=== PATIENT | female | born 1950 | race Caucasian/White ===

== ENCOUNTER 2016-12-26 12:49 | Emergency (ER) | payer MEDICARE ==
[~2016-12-26] VITALS: Ht 172.7 cm; Wt 97.7 kg
[~2016-12-26 12:49] MED LIST: ALPRAZOLAM1 MG PO; ASPI-628 PO; B12 PO; BUPR-97 PO; CYT5 PO; DIAZ10TA PO; FUR80 PO; GLYB5TAB3 PO; MAGN400T23 PO; OMEG-15 PO; POTA10TA; SYN.112T PO; VIT D3 PO
[2016-12-26 12:52] VITALS: BP 154/82; PULSE 82; RESP 16; O2SAT 98
[2016-12-26] MEDS ORDERED: 0.9% Sodium Chloride 1,000 ML IV ONE (13:27)
[2016-12-26] MEDS ORDERED: Ondansetron 2 mg/mL 2 mL Inj IVPUSH ONE (13:50)
--- NOTE | 2016-12-26 13:51 | ED.REPORT ---
HPI-NVD Date of Service Dec 26, 2016 ED Provider: Garett Anaya PA-C Nereida is a 66-year-old female with a history of diabetes who presents with a chief complaint of nausea and vomiting. She reports approximately a one-week history of constipation, 6 day history of nonbloody vomiting multiple times a day "not keeping anything down" and a 4 day history of not eating solid food. She also reports sweats, weakness, shakiness, reduced exercise tolerance. Denies abdominal pain, fever, chills, chest pain, palpitations, cough, wheeze, shortness of breath, melena, hematochezia, history of abdominal surgeries. She reports endoscopy/colonoscopy within the last 2 months that revealed gastric ulcer and for colon polyps, one of which is being biopsied. Nursing Notes Stated Complaint: VOMITING AND NO BOWEL MOVEMENT Chief Complaint: General Complaint Nursing Notes Reviewed: Yes Allergies: Coded Allergies: simvastatin (Verified Allergy, Severe, gout reaction/MYALGIAS, 12/26/16) topiramate (Verified Allergy, Severe, RASH, 12/26/16) gabapentin (Verified Allergy, Unknown, 12/26/16) morphine (Verified Allergy, Unknown, UNKNOWN, 12/26/16) pregabalin (Verified Allergy, Unknown, 12/26/16) soy (Verified Allergy, Unknown, UNKNOWN, 12/26/16) Uncoded Allergies: TOMPRAX (Allergy, Unknown, 11/20/14) Scheduled ([Vit D3 ]) 4,000 IU PO BID ([B12]) 500 MCG PO DAILY Alprazolam-Expunged Drug, Do Not Renew! (Alprazolam-Expunged Drug, Do Not Renew! ) 1 Mg Tablet 1 MG PO TIDP Aspirin (Aspir 81) 81 Mg Tablet.dr 81 MG PO DAILY Bupropion ER (Wellbutrin XL) 150 Mg Tab.er.24h 300 MG PO DAILY Diazepam-Expunged Drug, Do Not Renew! (Diazepam-Expunged Drug, Do Not Renew!) 10 Mg Tablet 10 MG PO TIDP Glyburide-Expunged Drug, Do Not Renew! (Diabeta-Expunged Drug, Do Not Renew!) 5 Mg Tablet 1 TAB PO HS TAKE 2 TABLETS (10MG) EVERY MORNING AND EVENING Levothyroxine Inactive Drug Do Not Use (Synthroid-Expunged Drug, Do Not Renew!) 112 Mcg Tablet 112 MCG PO DAILY Liothyronine-Expunged Drug, Do Not Renew! (Liothyronine-Expunged Drug, Do Not Renew!) 5 Mcg Tablet 1 TAB PO DAILY Magnesium Citrate (Magnesium Citrate) 296 Ml Solution 148 ML PO DAILY Magnesium Oxide (Mag-Oxide) 400 Mg Tablet 400 MG PO DAILY [place]-3/Dha/Epa/Fish Oil (Fish Oil 1,400 mg Softgel) 1 Each Capsule.dr 1 EACH PO DAILY Ondansetron ODT (Ondansetron ODT) 8 Mg Tab.rapdis 8 MG PO TID Potassium Chl-Expunged Drug, Do Not Renew! (P-Ltz-Ynvwpqaf Drug, Do Not Renew!) 10 Meq Tablet.sa 20 MEQ BID Scheduled PRN Furosemide-Expunged Drug, Do Not Renew! (Furosemide-Expunged Drug, Do Not Renew! ) 80 Mg Tablet 80 MG PO 1-2XD PRN PRN TAKE 1 TABLET DAILY ONCE TO TWICE DAILY NEEDED EDEMA General Time Seen by MD: 13:42 Chief Complaint Vomiting Past Medical History Past Medical History fibromyalgia right breast multifocal ER positive DCIS, status post bilateral mastectomy. Dyslipidemia. Hypothyroidism. Gastroesophageal reflux disease. Chronic liver transaminase elevations. Fibromyalgia and chronic pain. Obstructive sleep apnea and daytime somnolence. Mild aortic insufficiency. She reports history of cardiac complications of weight reduction pills. Chronic depression and anxiety. Reports: Asthma, Diabetes mellitus Past Surgical History Bilateral Mastectomy Carpal tunnel surgery on both hands. Trigger finger surgery on the right. Lipoma removal from the tailbone area. Right knee surgery to remove loose bone fragment. Family History Heart disease in both parents. No heart issues in siblings. Smoking History Former Smoker Ambulatory Status Independent Review of Systems General: Denies fever, chills, malaise. HEENT: Denies congestion, headache, sore throat. Respiratory: Denies dyspnea, cough, shortness of breath, wheezing. Cardiovascular: Denies chest pain, palpitations. Gastrointestinal: Admits vomiting, constipation. Denies diarrhea, abdominal pain Genitourinary: Denies frequency, urgency, dysuria, hematuria. Otherwise as noted in HPI. Physical Exam General: Well appearing, well developed, well nourished, no acute distress. Head: Atraumatic, normocephalic. Eyes: No scleral icterus or injection. No discharge. Vision grossly intact. ENT: Voice clear, hearing grossly intact. Respiratory: Regular rate and rhythm. Breath sounds present, clear to auscultation and equal bilaterally. Cardiovascular: Regular rate and rhythm, without murmur, gallop or rub. No pedal edema. Gastrointestinal: Global moderately tender abdomen without guarding or rebound. Bowel sounds hyperactive. Skin: Warm and dry. Neurological: Grossly nonfocal. Psychological: Alert and oriented. Speech appropriate, linear and logical. Behavior appropriate. Initial Vital Signs Vital Signs (First) Date Time Temp Pulse Resp B/P Pulse Ox O2 Delivery O2 Flow Rate FiO2 12/26/16 12:52 37.1 82 16 154/82 98 Room Air Initial VS: Reviewed, Vital signs normal Interpretation & Diagnostics Interpretation & Diagnostics: PROCEDURE: CT ABDOMEN AND PELVIS WITH CONTRAST ([id number]) INDICATIONS: abdominal tenderness IMPRESSION: 1. Moderate colonic stool distention may reflect constipation. No evidence of bowel obstruction. 2. Hepatic steatosis. 3. Possible mild wall thickening in the distal esophagus although this may be a related to nondistention. Recommend correlation with clinical symptoms for possible esophagitis. Lab Results Interpretation Result Diagram: 12/26/16 1350 12/26/16 1350 Test 12/26/16 13:50 12/26/16 14:39 12/26/16 15:47 White Blood Count 4.3th/mm3 (3.8-10.1) Red Blood Count 4.45mil/mm3 (3.90-5.20) Hemoglobin 13.0g/dL (12.0-15.6) Hematocrit 39.5% (35.0-46.0) Mean Corpuscular Volume 88.8fL (81-100) Mean Corpuscular Hemoglobin 29.2pg (27.0-35.0) Mean Corpuscular Hemoglobin Concent 32.9% (32.0-37.0) Red Cell Distribution Width 14.3% (12.3-15.4) Platelet Count 256bil/L (150-400) Neutrophils (%) (Auto) 66.5% (40-74) Lymphocytes (%) (Auto) 23.3% (14-46) Monocytes (%) (Auto) 8.8% (4-12) Eosinophils (%) (Auto) 1.2% (0-5) Basophils (%) (Auto) 0.2% (0-3) Sodium Level 140mEq/L (134-144) Potassium Level 4.1mEq/L (3.5-5.2) Chloride Level 100mEq/L (97-108) Carbon Dioxide Level 25mmol/L (18-29) Blood Urea Nitrogen 12mg/dL (8-27) Creatinine 1.05mg/dL (0.57-1.00) Estimat Glomerular Filtration Rate 75mL/min (>59) Glucose Level 154mg/dL (60-99) Calcium Level 9.7mg/dL (8.5-10.1) Magnesium Level 2.0mg/dL (1.6-2.6) Total Bilirubin 0.4mg/dL (0.0-1.2) Aspartate Amino Transf (AST/SGOT) 31U/L (0-50) Alanine Aminotransferase (ALT/SGPT) 35U/L (0-32) Alkaline Phosphatase 95U/L (25-165) Pro-B-Type Natriuretic Peptide 29.88pg/mL (0-301) Total Protein 7.8g/dL (6.4-8.4) Albumin 4.4g/dL (3.4-5.0) Lipase 33U/L (13-60) Hold [place] Top Tube Received (Received) Hold Urine Received (Received) Urine Color Straw (YELLOW) Urine Appearance Hazy (CLEAR,HAZY) Urine pH 7.0 (5.0-8.0) Urine Specific [place] 1.005 (1.003-1.035) Urine Protein Negativemg/dL (NEG,TRACE) Urine Glucose (UA) Negativemg/dL (NEGATIVE) Urine Ketones Negativemg/dL (NEGATIVE) Urine Occult Blood Negative (NEGATIVE) Urine Nitrite Negative (NEGATIVE) Urine Bilirubin Negative (NEGATIVE) Urine Urobilinogen Normalmg/dL (NORMAL) Urine Leukocyte Esterase Negative (NEGATIVE) Urine RBC 0-2/hpf (0-2) Urine WBC 0-5/hpf (0-5) Urine Epithelial Cells None/hpf (NONE-MOD) Urine Crystals None seen (NONE SEEN) Urine Bacteria Few/hpf (NONE-FEW) Urine Hyaline Casts None/lpf (NONE) Urine Granular Casts None seen (NONE SEEN) Urine Waxy Casts None seen (NONE SEEN) Urine Red Blood Cell Casts None seen (NONE SEEN) Urine White Blood Cell Casts None seen (NONE SEEN) Urine Mucus None seen (None Seen) Urine Trichomonas None seen (NONE SEEN) Urine Yeast None (NONE SEEN) Urinalysis Comment None Urine Culture Reflexed Not indicated Re-Eval/Medical Decision Med Decision/Clinical Course 66-year-old female with a history of diabetes, GERD, fibromyalgia presents with chief complaint of vomiting. States that she has been "unable to keep anything down" for approximately 6 days. She also says that she has not had a bowel movement for 7 days. Denies abdominal pain, admits a recent colonoscopy that revealed polyps. On physical examination she is diffusely moderately tender in her abdomen. I discussed case with Dr. Dominguez and we agreed that CT of her abdomen and pelvis is reasonable. CT reveals distention probably secondary to constipation, as well as hepatic steatosis and esophageal thickening. CBC is normal, CMP reveals slight hyperglycemia. Urinalysis is normal. I believe this vomiting is probably secondary to her constipation versus gastroparesis, cyclic vomiting, intestinal obstruction or diverticulitis. Also considered cardiac etiology, but her EKG was reassuring on this point. The patient responded well to IV fluids and Zofran. By mouth challenge was successful. Discharged patient with instructions to take half a bottle of magnesium citrate tonight and half bottle tomorrow. Provided prescription for Zofran, advised primary care follow-up and gave return precautions. Patient and her are comfortable with the plan and feel prepared for discharge. Discharge & Departure Impression: Primary Impression: Vomiting Vomiting type: unspecified Vomiting Intractability: non-intractable Nausea presence: with nausea Qualified Code: R11.2 - Nausea with vomiting, unspecified Additional Impression: Constipation Constipation type: unspecified constipation type Qualified Code: K59.00 - Constipation, unspecified Disposition: Home Discharge Condition All VS Reviewed: Yes Condition: Stable Patient Instructions: Magnesium Citrate (By mouth) Additional Instructions: Evaluation for vomiting in the emergency department. Blood tests show that your kidneys and liver function well and your glucose is within a reasonable range for a person being treated for diabetes. CT of the abdomen reveals evidence of constipation, which as you and your primary care provider suspected may be contributing to your vomiting. This is reassuring that it is not a serious condition such as bowel obstruction or diverticulitis. We will treat her constipation with half bottle of magnesium citrate taken tonight, and followed by the other half of the bottle tomorrow morning. We will treat the vomiting and nausea with a prescription for Zofran. I recommend drinking small amounts of liquid and eating small amounts of food as tolerated. Follow-up with your primary care provider in 2 or 3 days to reassess your condition. CT exam revealed 2 incidental findings: Fatty liver and esophageal thickening. While these are not immediately dangerous, they should be discussed with your primary care provider at that visit. Return to emergency department for new or worsening symptoms including vomiting that does not respond to medication, increasing pain, fever, chest pain, shortness of breath, weakness. Referrals: Lex Rosado MD (PCP) EDSupervising Provider for APC: Mendoza Dominguez MD copies to: Lex Rosado MD, Seth PA-C Dec 26, 2016 13:51
[2016-12-26 13:59] LABS: BASOPHILS % (AUTO) 0.2 % (0-3); EOSINOPHILS % (AUTO) 1.2 % (0-5); MONOCYTES % (AUTO) 8.8 % (4-12); Mean Corpuscular Hemoglobin 29.2 pg (27.0-35.0); Mean Corpuscular Volume 88.8 fL (81-100); NEUTROPHILS % (AUTO) 66.5 % (40-74); Platelet Count 256 bil/L (150-400)
--- NOTE | 2016-12-26 15:15 | DRSVH ---
PROCEDURE: CT ABDOMEN AND PELVIS WITH CONTRAST ([id number]) INDICATIONS: abdominal tenderness TECHNIQUE: After the administration of oral and intravenous contrast, 5 mm thick sections acquired from the diap hragms to the symphysis. 5 mm thick coronal and sagittal reformats were performed. For radiation do se reduction, the following was used: automated exposure control, adjustment of mA and/or kV accordi ng to patient size. COMPARISON: , CT, ANGIO ABD PELVIS W/WO CONTRAST (PNL), 07/09/2012, 7:09. FINDINGS: Image quality: Excellent. ABDOMEN: Lung bases: Lung bases are clear. Heart size is normal. There is a mildly prominent right cardioph renic angle lymph node measuring up to 7 mm in short axis which appears unchanged. There is suggesti on of mild concentric wall thickening in the distal esophagus although this may reflect nondistention . Solid organs: There is diffuse hypoattenuation of the liver consistent with fatty infiltration with more focal fatty infiltration anteriorly in the left hepatic lobe. The spleen is normal in size. Bi liary system is non-dilated. Pancreas enhances normally. No adrenal nodules. Kidneys demonstrate n o hydronephrosis. There is a small hypodensity in the right kidney likely representing a parapelvic cyst. Peritoneum and bowel: Stomach, small bowel, and colon loops are normal in caliber and wall thickness . No evidence of appendicitis. There is moderate colonic stool distention which reflects constipati on. No free fluid or air. Nodes and vessels: No retroperitoneal or mesenteric adenopathy. Aorta and inferior vena cava are no rmal in caliber. Miscellaneous: No ventral hernias. PELVIS: Genitourinary: Bladder wall thickness is normal. Miscellaneous: No inguinal hernias or adenopathy. Bones: No suspicious bony lesions. No vertebral body compression fractures. IMPRESSION: 1. Moderate colonic stool distention may reflect constipation. No evidence of bowel obstruction. 2. Hepatic steatosis. 3. Possible mild wall thickening in the distal esophagus although this may be a related to nondisten tion. Recommend correlation with clinical symptoms for possible esophagitis. Dictated by: Wilder Verdugo M.D. on 12/26/2016 at 15:06 Approved by: Wilder Verdugo M.D. on 12/26/2016 at 15:13
[2016-12-26 16:09] LABS: APPEARANCE,URINE HAZY (CLEAR,HAZY); COLOR,URINE STRAW (YELLOW); OCCULT BLOOD,URINE NEGATIVE (NEGATIVE); UROBILINOGEN,URINE NORMAL (NORMAL)
[2016-12-26] MEDS ORDERED: MAGN296S PO (16:51)
[2016-12-26] MEDS ORDERED: ONDA8TAB10 PO (16:51)
[2016-12-26 16:56] VITALS: BP 158/78; PULSE 71; RESP 17; O2SAT 98
== END 2016-12-26 16:57 | disposition home or self-care (01) ==
LOC: SED 12:49
DX: R11.2 Nausea with vomiting, unspecified (principal); K59.00 Constipation, unspecified; R61 Generalized hyperhidrosis; R53.1 Weakness; R25.1 Tremor, unspecified; J45.909 Unspecified asthma, uncomplicated; E11.9 Type 2 diabetes mellitus without complications; K21.9 Gastro-esophageal reflux disease without esophagitis; E03.9 Hypothyroidism, unspecified; E78.5 Hyperlipidemia, unspecified; M79.7 Fibromyalgia; Z79.82 Long term (current) use of aspirin; Z79.891 Long term (current) use of opiate analgesic; Z88.5 Allergy status to narcotic agent; Z88.8 Allergy status to other drugs, medicaments and biological substances; Z91.018 Allergy to other foods
CPT/HCPCS: 36415; 74177; 80053; 81000; 83690; 83735; 83880; 85025; 93005; 96361; 96374; 99285; J2405; J7030; Q9967

== ENCOUNTER 2017-03-19 16:28 | Observation (INO) | payer MEDICARE ==
[~2017-03-19] VITALS: Ht 170.2 cm; Wt 96.2 kg
[~2017-03-19 16:28] MED LIST changes: +MAGN296S PO; +ONDA8TAB10 PO
[2017-03-19 16:30] VITALS: BP 154/80; PULSE 91; RESP 16; O2SAT 99
--- NOTE | 2017-03-19 17:01 | DRSVH ---
PROCEDURE: X-RAY CHEST, TWO VIEWS ([id number]) INDICATIONS: SOB TECHNIQUE: 2 views of the chest were acquired. COMPARISON: [facility], CHEST 2VW, 02/09/2016, 12:57 PM. FINDINGS: Surgical changes and devices: Multiple surgical clips are projected over the bilateral lungs. Lungs and pleura: No pleural effusions or pneumothorax. Lungs are clear. Mediastinum: Mediastinal contours are normal. Heart size is normal. Bones and chest wall: No suspicious bony abnormalities. Moderate degenerative changes present throug hout the thoracic spine. Soft tissues appear unremarkable. IMPRESSION: No acute cardiopulmonary findings. Dictated by: Halima Gray M.D. on 03/19/2017 at 16:58 Approved by: Halima Gray M.D. on 03/19/2017 at 16:59
[2017-03-19 18:45] LABS: BASOPHILS % (AUTO) 0.7 % (0-3); EOSINOPHILS % (AUTO) 1.3 % (0-5); MONOCYTES % (AUTO) 9.4 % (4-12); Mean Corpuscular Volume 87.6 fL (81-100); NEUTROPHILS % (AUTO) 63.7 % (40-74); Platelet Count 301 bil/L (150-400)
--- NOTE | 2017-03-19 19:02 | ED.REPORT ---
HPI-Dyspnea / Wheezing Date of Service March 19, 2017 ED Provider: Dr. Darinel Sanchez This is a very pleasant 66-year-old female who presents with profound dyspnea on exertion. Evidently she has a history of valvular heart disease related to weight loss medications. Her last echo was 2000 and she is known to have some aortic stenosis and mitral insufficiency. Over the past several weeks she has tried to increase her exercise capacity by walking with her dog. For a while she is doing very good use able to walk a mile to a mile and a half without any problems. Over the past 7-10 days she has had steadily progressive and worsening dyspnea on exertion. She can now take may be 3-4 steps forcing us to stop and catch her breath. She will feel her heart "fluttering" however she does not have any pain. She has a very mild cough. She does not have any orthopnea. While in the emergency department we watched her walk down the hallway. She is able to take about 7 steps and then she had to lean forward and catch her breath. She did not become cyanotic or diaphoretic. Nursing Notes Stated Complaint: SOB Chief Complaint: Respiratory Distress Nursing Notes Reviewed: Yes Allergies: Coded Allergies: simvastatin (Verified Allergy, Severe, gout reaction/MYALGIAS, 12/26/16) topiramate (Verified Allergy, Severe, RASH, 12/26/16) gabapentin (Verified Allergy, Unknown, 12/26/16) morphine (Verified Allergy, Unknown, UNKNOWN, 12/26/16) pregabalin (Verified Allergy, Unknown, 12/26/16) soy (Verified Allergy, Unknown, UNKNOWN, 12/26/16) Uncoded Allergies: TOMPRAX (Allergy, Unknown, 11/20/14) Scheduled ([Vit D3 ]) 4,000 IU PO BID ([B12]) 500 MCG PO DAILY Alprazolam-Expunged Drug, Do Not Renew! (Alprazolam-Expunged Drug, Do Not Renew! ) 1 Mg Tablet 1 MG PO TIDP Aspirin (Aspir 81) 81 Mg Tablet. 81 MG PO DAILY Bupropion ER (Wellbutrin XL) 150 Mg Tab.er.24h 300 MG PO DAILY Diazepam-Expunged Drug, Do Not Renew! (Diazepam-Expunged Drug, Do Not Renew!) 10 Mg Tablet 10 MG PO TIDP Glyburide-Expunged Drug, Do Not Renew! (Diabeta-Expunged Drug, Do Not Renew!) 5 Mg Tablet 1 TAB PO HS TAKE 2 TABLETS (10MG) EVERY MORNING AND EVENING Levothyroxine Inactive Drug Do Not Use (Synthroid-Expunged Drug, Do Not Renew!) 112 Mcg Tablet 112 MCG PO DAILY Liothyronine-Expunged Drug, Do Not Renew! (Liothyronine-Expunged Drug, Do Not Renew!) 5 Mcg Tablet 1 TAB PO DAILY Magnesium Citrate (Magnesium Citrate) 296 Ml Solution 148 ML PO DAILY Magnesium Oxide (Mag-Oxide) 400 Mg Tablet 400 MG PO DAILY [place]-3/Dha/Epa/Fish Oil (Fish Oil 1,400 mg Softgel) 1 Each Capsule.dr 1 EACH PO DAILY Ondansetron ODT (Ondansetron ODT) 8 Mg Tab.rapdis 8 MG PO TID Potassium Chl-Expunged Drug, Do Not Renew! (G-Vdf-Tczzloqy Drug, Do Not Renew!) 10 Meq Tablet.sa 20 MEQ BID Scheduled PRN Furosemide-Expunged Drug, Do Not Renew! (Furosemide-Expunged Drug, Do Not Renew! ) 80 Mg Tablet 80 MG PO 1-2XD PRN PRN TAKE 1 TABLET DAILY ONCE TO TWICE DAILY NEEDED EDEMA General Time Seen by MD: 19:02 Chief Complaint Shortness of breath Hx Obtained From: Patient Arrived By: Walk-in Sudden in Onset?: Yes Onset Occurred: 1 week ago Symptom Duration: Since onset Severity: Current: No pain currently Recent Healthcare: No recent doctor visit, No recent hospitalization Similar Sx Previous: No Past Medical History Past Medical History fibromyalgia right breast multifocal ER positive DCIS, status post bilateral mastectomy. Dyslipidemia. Hypothyroidism. Gastroesophageal reflux disease. Chronic liver transaminase elevations. Fibromyalgia and chronic pain. Obstructive sleep apnea and daytime somnolence. Mild aortic insufficiency. She reports history of cardiac complications of weight reduction pills. Chronic depression and anxiety. Reports: Asthma, Diabetes mellitus Past Surgical History Bilateral Mastectomy Carpal tunnel surgery on both hands. Trigger finger surgery on the right. Lipoma removal from the tailbone area. Right knee surgery to remove loose bone fragment. Family History Heart disease in both parents. No heart issues in siblings. Smoking History Former Smoker Ambulatory Status Independent Review of Systems Constitutional: Reports: Weakness - generalized, Denies: Fever Respiratory: Reports: Non-productive cough, Shortness of breath Complete sys rev & neg: except as marked. GI: Denies: Diarrhea, Nausea, Vomiting Physical Exam Initial Vital Signs Vital Signs (First) Date Time Temp Pulse Resp B/P Pulse Ox O2 Delivery O2 Flow Rate FiO2 03/19/17 16:30 36.4 91 16 154/80 99 Room Air Initial VS: Reviewed Head / Eyes: Atraumatic, Normocephalic, PERRL ENT: Mucous membranes moist, Conjunctiva normal Abdomen / GI: Soft, Non-tender, No guarding, No rebound, No distention Extremities: Vascular intact, Neuro intact, No swelling, No tenderness Skin: Warm, Dry Neurologic: Alert, Oriented General/Constitutional: Awake, Alert, Cooperative Neck: Atraumatic, Supple, No meningismus Respiratory / Chest: Atraumatic, Breath sounds NL, Breath sounds = bilat Cardiovascular: Heart rate NL, Regular rhythm, Heart sounds NL, No gallop, No murmurs, No rubs "click" over aortic post Interpretation & Diagnostics Lab Results Interpretation Result Diagram: 03/19/170 03/19/17 1830 Test 03/19/17 18:30 03/19/17 20:35 White Blood Count 8.2th/mm3 (3.8-10.1) Red Blood Count 4.66mil/mm3 (3.90-5.20) Hemoglobin 13.5g/dL (12.0-15.6) Hematocrit 40.8% (35.0-46.0) Mean Corpuscular Volume 87.6fL (81-100) Mean Corpuscular Hemoglobin 29.0pg (27.0-35.0) Mean Corpuscular Hemoglobin Concent 33.1% (32.0-37.0) Red Cell Distribution Width 14.5% (12.3-15.4) Platelet Count 301bil/L (150-400) Neutrophils (%) (Auto) 63.7% (40-74) Lymphocytes (%) (Auto) 24.7% (14-46) Monocytes (%) (Auto) 9.4% (4-12) Eosinophils (%) (Auto) 1.3% (0-5) Basophils (%) (Auto) 0.7% (0-3) D-Dimer < 0.50mg/L FEU (<0.50) Sodium Level 139mEq/L (134-144) Potassium Level 4.8mEq/L (3.5-5.2) Chloride Level 100mEq/L (97-108) Carbon Dioxide Level 21mmol/L (18-29) Blood Urea Nitrogen 20mg/dL (8-27) Creatinine 1.06mg/dL (0.57-1.00) Estimat Glomerular Filtration Rate 75mL/min (>59) Glucose Level 116mg/dL (60-99) Calcium Level 10.9mg/dL (8.5-10.1) Magnesium Level 1.9mg/dL (1.6-2.6) Total Bilirubin 0.3mg/dL (0.0-1.2) Aspartate Amino Transf (AST/SGOT) 34U/L (0-50) Alanine Aminotransferase (ALT/SGPT) 38U/L (0-32) Alkaline Phosphatase 98U/L (25-165) Troponin T < 0.010ug/L (0.0-0.011) Pro-B-Type Natriuretic Peptide 19.60pg/mL (0-301) Total Protein 7.8g/dL (6.4-8.4) Albumin 4.5g/dL (3.4-5.0) Thyroid Stimulating Hormone (TSH) 0.502uIU/mL (0.450-4.500) Urine Color Straw (YELLOW) Urine Appearance Clear (CLEAR,HAZY) Urine pH 6.0 (5.0-8.0) Urine Specific [place] 1.005 (1.003-1.035) Urine Protein Negativemg/dL (NEG,TRACE) Urine Glucose (UA) Negativemg/dL (NEGATIVE) Urine Ketones Negativemg/dL (NEGATIVE) Urine Occult Blood Negative (NEGATIVE) Urine Nitrite Negative (NEGATIVE) Urine Bilirubin Negative (NEGATIVE) Urine Urobilinogen Normalmg/dL (NORMAL) Urine Leukocyte Esterase Moderate (NEGATIVE) Urine RBC 0-2/hpf (0-2) Urine WBC 0-5/hpf (0-5) Urine Epithelial Cells Occasional/hpf (NONE-MOD) Urine Crystals None seen (NONE SEEN) Urine Bacteria Few/hpf (NONE-FEW) Urine Hyaline Casts None/lpf (NONE) Urine Granular Casts None seen (NONE SEEN) Urine Waxy Casts None seen (NONE SEEN) Urine Red Blood Cell Casts None seen (NONE SEEN) Urine White Blood Cell Casts None seen (NONE SEEN) Urine Mucus None seen (None Seen) Urine Trichomonas None seen (NONE SEEN) Urine Yeast None (NONE SEEN) Urinalysis Comment None Urine Culture Reflexed Indicated Hold Urine Received (Received) X-Ray Chest Interpretation Chest Xray Interpretation: IMPRESSION: No acute cardiopulmonary findings. Dictated by: Halima Gray M.D. on 03/19/2017 at 16:58 Approved by: Halima Gray M.D. on 03/19/2017 at 16:59 View: Portable Interpretation / Wet Read by: Interpret - Radiologist Re-Eval/Medical Decision Med Decision/Clinical Course Valvular heart disease or an anginal equivalent R top of my list of differential. I think she needs an echocardiogram as well as consider a stress test. I consulted with Darrick Malcolm. His recommendations are to have her admitted to get the echo and stress test. Consultation #1: Referral / Consult Name: Horace Malcolm MD Consulted With: Hospitalist Call Returned at: 20:23 Rip Saw Operator: Agrees with eval, Agrees with plan, Accepts admit Note: Case discussed. Dr. Malcolm recommends admission for echocardiogram and stress test. Consultation #2: Referral / Consult Name: Macario Medley MD Consulted With: Hospitalist Call Returned at: 20:32 Rip Saw Operator: Agrees with eval, Agrees with plan Note: Case discussed. Counseled Regarding: Diagnosis, Lab results, Need for admission Discharge & Departure Impression: Primary Impression: Dyspnea on exertion Additional Impression: Valvular heart disease Disposition: ADMITTED TO HOSPITAL Discharge Condition All VS Reviewed: Yes Condition: Stable Referrals: Lex Rosado MD (PCP) Scribe Attestation Portion of this note were transcribed by Chey Ribeiro. I, Dr. Darinel Sanchez, personally performed the history, physical exam, and medical decision-making: I reviewed and confirmed the accuracy for the information in the transcribed note. Signed by: laury Chandler, 03/19/17 2200 copies to: Lex Rosado MD, Todd P DO March 19, 2017 19:02 Chey Ribeiro March 19, 2017 19:29
[2017-03-19 19:20] LABS: Magnesium 1.9 mg/dL (1.6-2.6)
[2017-03-19 19:22] LABS: TROPONIN T < 0.010 ug/L (0.0-0.011)
[2017-03-19 19:28] VITALS: BP 156/81; PULSE 85; RESP 17; O2SAT 99
[2017-03-19] MEDS ORDERED: Senna-Docusate 8.6-50 mg Tablet PO PRN (21:15)
[2017-03-19] MEDS ORDERED: Atropine 1 mg/10 mL (Code) Syringe IVPUSH PRN (21:15)
[2017-03-19] MEDS ORDERED: Alum-Mag Hydrox-Simeth 30 mL Suspension PO PRN (21:15)
[2017-03-19] MEDS ORDERED: Polyethylene Glycol (PEG) 17 Gm Powder PO PRN (21:15)
[2017-03-19] MEDS ORDERED: Ondansetron 2 mg/mL 2 mL Inj IVPUSH PRN (21:15)
[2017-03-19 21:26] VITALS: BP 156/81; PULSE 85; RESP 17; O2SAT 99
[2017-03-19 22:05] VITALS: BP 178/81; PULSE 84; RESP 19; O2SAT 98
[2017-03-19 22:15] LABS: APPEARANCE,URINE CLEAR (CLEAR,HAZY); COLOR,URINE STRAW (YELLOW); OCCULT BLOOD,URINE NEGATIVE (NEGATIVE); UROBILINOGEN,URINE NORMAL (NORMAL)
[2017-03-19 22:29] VITALS: PULSE 83
[2017-03-20] VITALS (10 sets, daily range): BP systolic 124–165; BP diastolic 76–86; PULSE 76–87; RESP 16–18; O2SAT 96–100
[2017-03-20] MEDS: Sodium Chloride LOK Flush 10 mL Syringe IVFLUSH SCH ×3 (00:30→18:18)
--- NOTE | 2017-03-20 00:59 | PCM.HPMED ---
Subjective Date of Service March 19, 2017 Primary Provider: Admitting Physician: Primary Care Physician: Lex Rosado MD Attending Physician: Chief Complaint: dyspnea on exertion History of Present Illness: 66-year-old female with history of fibromyalgia, hypothyroidism, RYAN, mood disorder, and DM2 who presents for evaluation of increasing dyspnea on exertion. Patient reports that in the last week or 2, she notes that her exertional tolerance has been decreasing. It has gotten to the point where she walks 6 or 7 steps she will feel short of breath and have to stop to catch her breath. She reports that when she is immobile, she is asymptomatic and is able to speak full sentences. She occasionally will feel palpitations, but denies any chest pain, headache, dizziness, diaphoresis, or LOC. She has not noted any triggers and is able to sleep flat at home. She denies any recent illnesses or medication changes. She reports history of panic attacks, but states that usually manifests as chest pain. She has never had any attacks recently and does not feel any increased stress. She did have a low risk stress test in 2014 for dyspnea In the ED she was afebrile with a pulse of 91 and a blood pressure of 154/80, saturating 99% on room air. Her CBC and CMP were unremarkable except for mildly elevated creatinine of 1.06. Her TSH was 0.5 Her d-dimer was negative, and her UA did show moderate leukocyte esterase, although patient denied any dysuria or frequency Review of Systems: 12 pt ros neg except as stated in HPI Allergies Coded Allergies: simvastatin (Verified Allergy, Severe, gout reaction/MYALGIAS, 03/20/17) topiramate (Verified Allergy, Severe, RASH, 03/20/17) gabapentin (Verified Allergy, Unknown, 03/20/17) morphine (Verified Allergy, Unknown, UNKNOWN, 03/20/17) pregabalin (Verified Allergy, Unknown, 03/20/17) soy (Verified Allergy, Unknown, UNKNOWN, 03/20/17) Uncoded Allergies: TOMPRAX (Allergy, Unknown, 11/20/14) Home Medications Scheduled ([Vit D3 ]) 4,000 IU PO BID ([B12]) 500 MCG PO DAILY Alprazolam-Expunged Drug, Do Not Renew! (Alprazolam-Expunged Drug, Do Not Renew! ) 1 Mg Tablet 1 MG PO TIDP Aspirin (Aspir 81) 81 Mg Tablet. 81 MG PO DAILY Bupropion ER (Wellbutrin XL) 150 Mg Tab.er.24h 300 MG PO DAILY Diazepam-Expunged Drug, Do Not Renew! (Diazepam-Expunged Drug, Do Not Renew!) 10 Mg Tablet 10 MG PO TIDP Glyburide-Expunged Drug, Do Not Renew! (Diabeta-Expunged Drug, Do Not Renew!) 5 Mg Tablet 1 TAB PO HS TAKE 2 TABLETS (10MG) EVERY MORNING AND EVENING Levothyroxine Inactive Drug Do Not Use (Synthroid-Expunged Drug, Do Not Renew!) 112 Mcg Tablet 112 MCG PO DAILY Liothyronine-Expunged Drug, Do Not Renew! (Liothyronine-Expunged Drug, Do Not Renew!) 5 Mcg Tablet 1 TAB PO DAILY Magnesium Citrate (Magnesium Citrate) 296 Ml Solution 148 ML PO DAILY Magnesium Oxide (Mag-Oxide) 400 Mg Tablet 400 MG PO DAILY Phoenix-3/Dha/Epa/Fish Oil (Fish Oil 1,400 mg Softgel) 1 Each Capsule.dr 1 EACH PO DAILY Ondansetron ODT (Ondansetron ODT) 8 Mg Tab.rapdis 8 MG PO TID Potassium Chl-Expunged Drug, Do Not Renew! (V-Vsd-Jleqqocv Drug, Do Not Renew!) 10 Meq Tablet.sa 20 MEQ BID Scheduled PRN Furosemide-Expunged Drug, Do Not Renew! (Furosemide-Expunged Drug, Do Not Renew! ) 80 Mg Tablet 80 MG PO 1-2XD PRN PRN TAKE 1 TABLET DAILY ONCE TO TWICE DAILY NEEDED EDEMA PMH right breast multifocal ER positive DCIS, status post bilateral mastectomy. Dyslipidemia. Hypothyroidism on T4 and T3 Gastroesophageal reflux disease. Chronic liver transaminase elevations. Fibromyalgia and chronic pain. Obstructive sleep apnea and daytime somnolence. She reports history of cardiac complications of weight reduction pills. Chronic depression and anxiety. Reports: Asthma, Diabetes mellitus Surgical History Bilateral Mastectomy Carpal tunnel surgery on both hands. Trigger finger surgery on the right. Lipoma removal from the tailbone area. Right knee surgery to remove loose bone fragment. Family History Heart disease in both parents. No heart issues in siblings. Social History Hx Alcohol Use: No Hx Substance Use: No Hx Tobacco Use: No Smoking Status: Former Smoker (quit in ) Living Arrangement: with Family Exam Vital Signs Vital Sign - Last Date Time Temp Pulse Resp B/P Pulse Ox O2 Delivery O2 Flow Rate FiO2 03/19/17 19:28 85 17 156/81 99 Room Air 03/19/17 16:30 36.4 Exam General: Obese female who appears in no acute distress while laying down flat, alert and oriented x 3 HEENT: PERRLA, EOMI, sclerae anicteric, oropharynx moist and pink Neck: Soft, nontender, no JVD noted CV: Regular rate and rhythm with soft systolic murmur, peripheral pulses intact and equal Respiratory: CTAB, no wheezing or rhonchi, normal respiratory effort Abdomen: Obese, soft, nontender, and NABS MSK: Muscle strength grossly intact and equal, no swollen or tender joints, no clubbing cyanosis or edema Neuro: Cranial nerves II-12 grossly intact, face symmetric, speaks full and fluent sentences Skin: Warm, dry, intact Psych: Appropriate mood and affect, linear thought process, cooperative Lab and Diagnostics Result Diagram: 03/19/17182903/19/171829 X-Rays, CTs and MRIs PROCEDURE: X-RAY CHEST, TWO VIEWS ([id number]) IMPRESSION: No acute cardiopulmonary findings. 12-lead ECG Normal sinus rhythm with a rate of 77, no acute ST changes Assessment & Plan 66-year-old female with history of fibromyalgia, hypothyroidism, RYAN, mood disorder, and DM2 who presents for evaluation of increasing dyspnea on exertion. x 1 week Dyspnea on exertion, present on admission Uncertain of etiology for this acute episode. D-dimer was negative, EKG was benign, no pertinent findings on labs or physical exam. DDX deconditioning, adrenal insufficiency, anxiety, vasculitis, polypharmacy, infection Discussed patient with PCP, recommendation was echocardiogram and stress testing tomorrow We will place on telemetry for CV monitoring Orthostatic VS ordered Hypothyroidism, POA TSH 0.5 on admission Resume home medications when med rec performed Elevated BP, POA Patient without history of hypertension or on any antihypertensives. BP has been in the 150s systolic consistently Consider initiating a medication if continues to be elevated T2DM, POA Resume home medications when med rec performed Mood disorder, POA Resume patient's home medications when MED REC performed Asymptomatic bacteriuria, POA UA showing moderate LEs, patient currently asymptomatic Continue to monitor and treat as appropriate Tylenol prn pain Zofran prn nausea CODE STATUS: Full resuscitation Disposition: Patient is admitted under observation status with expected length of stay less than 2 midnights due to risk of adverse events, decompensation, and medical complexity Pain Evaluation: Adequate Pain Control VTE Prophylaxis: Sub-Q Enoxaparin, SCDs Resuscitation Status: CPR: Attempt Resuscitation Attending Statement The patient was seen and examined together with Dr. Gibbs on 03/19 and I agree with the history, exam and plan as outlined in the note above. Mario Gibbs DO March 19, 2017 21:24 Macario Medley MD March 20, 2017 02:30
[2017-03-20] MEDS ORDERED: Albuterol-Ipratropium 3 mL Inhalation Solution NEB PRN (01:05)
[2017-03-20] MEDS ORDERED: ALPR1TAB7 PO (02:38)
[2017-03-20] MEDS ORDERED: GLIM4TAB2 PO (02:41)
[2017-03-20] MEDS ORDERED: LEVO112T4 PO (02:45)
[2017-03-20] MEDS ORDERED: MULT-666 PO (03:00)
[2017-03-20] MEDS ORDERED: CALC-952 PO (03:18)
[2017-03-20] MEDS ORDERED: CALC600T12 PO (03:24)
--- NOTE | 2017-03-20 06:52 | NUR ---
admit SOB with exertion. RA sats 99%. Placed NPO per MD order for echo and stress test today. admit completed. Tele; Sinus 80's, no chest pain. Significant issues with anxiety and a history of panic attacks. Calm overnight, up with assist.
[2017-03-20 07:23] LABS: BASOPHILS % (AUTO) 0.6 % (0-3); EOSINOPHILS % (AUTO) 1.8 % (0-5); MONOCYTES % (AUTO) 10.7 % (4-12); Mean Corpuscular Hemoglobin 29.1 pg (27.0-35.0); Mean Corpuscular Volume 87.2 fL (81-100); NEUTROPHILS % (AUTO) 59.2 % (40-74); Platelet Count 276 bil/L (150-400)
--- NOTE | 2017-03-20 10:48 | NUR ---
Case Management: VELÁZQUEZ and Medicare Part D form delivered and explained to pt. and spouse. Original placed in chart. Copy left at bedside. Preeti Romo RN
--- NOTE | 2017-03-20 11:41 | NUR ---
Social Work-initial assessment/ readiness for discharge: Data:See initial assessment. Pt is a 66 y/o female who was admitted on 03/19/17 for profound new onset dyspnea on exertion per H&P. Pt's insurance is [employer] and PCP is Lex Rosado MD. EMR reviewed. SW met with pt to discuss discharge planning, SW role explained. Pt is alert and oriented x3. Pt resides at home with her where she remains independent with ADls. Pt drives and does not use any DME. Pt has no HH or SNF history. Pt has no cardiopulmonary specialist care insurance or VA benefits. SW discussed DPOA/ advanced directive, pt states she has the information and will continue to work on this. Per RN notes, pt has been up independent in her room. Pt's family to provide transport home. SW provided phone number and plan on white board in room. No anticipated discharge needs. SW will continue to follow if needs arise. Assessment:Pt who is independent at baseline. Plan:Pt to discharge home when medically stable via POV. No anticipated discharge needs. SW will continue to follow if needs arise. CESAR Penny Addendum: 03/20/17 at 1147 by DESTINI MCKENZIE Amended: Links added.
--- NOTE | 2017-03-20 12:05 | NUR ---
Stress Test Pt to [facility] for stress test at 1205, equipment monitor phototypesetting aware.
--- NOTE | 2017-03-20 15:35 | DRSVH ---
PROCEDURE: 1 DAY PHARMACOLOGICAL STRESS TEST Rest and pharmacological stress myocardial perfusion SPECT with gated imaging and ejection fraction RADIOPHARMACEUTICAL: 10.4 mCi Tc-99m tetrafosmin IV at rest and 31.6 mCi Tc-99m tetrafosmin IV at pea k effect of pharmacological stress. A [id number] was performed. INDICATIONS: 66-year-old woman with severe dyspnea on exertion. She has diabetes, hyperlipidemia, sm oking and family history as risk factors for coronary artery disease. TECHNIQUE: Radiopharmaceutical was injected at peak stress test, and also at rest. SPECT images wer e obtained. SPECT myocardial perfusion images were displayed in short axis, horizontal long axis, an d vertical long axis views. Gated images were reviewed using Auto[employer] software. COMPARISON: [facility], [place] CARDIAC STRESS TEST EXERCISE, 08/23/2015, 13:10. CARDIAC STRESS: A pharmacologic stress test was performed under the supervision of an attending staff, using an infus ion of [employer]. Hemodynamic data: There is normal blood pressure and heart rate response to pharmacologic stress. Symptoms: The patient denied anginal chest pain. Aminophylline: Not administered. EKG: No diagnostic changes of ischemia; no ectopy. FINDINGS: Raw data: There is good myocardial uptake of radiotracer. No significant motion artifacts. Left ventricle function: Gated images demonstrate normal left ventricular wall thickening. No segme ntal wall motion abnormalities. No transient ischemic dilation. Left ventricle resting end diastoli c volume is normal. Left ventricle stress ejection fraction is greater than 70%; normal range is abo ve 45%. Myocardial perfusion: There is a small, mild, partially reversible perfusion defect in the anterolat eral apex, which is mostly treated caused by shifting breast artifact. Comparison to prior examinations: Compared to the last examination on 08/23/2015, the suspected shift ing breast artifact is new. Otherwise, no significant change. IMPRESSION: 1. Probably Normal myocardial perfusion images. There is a small, mild, partially reversible perfusio n defect in the left anterolateral apex of the left ventricle, which is most likely caused by shiftin g breast artifact. A small, mild ischemia in the anterolateral apex is felt less likely. 2. Normal left ventricular volume and systolic function. 3. No chest pain or diagnostic EKG changes for ischemia. PQRS ATTESTATIONS: Measure 322 - Is this imaging test primarily performed on a low-risk surgery patient for preoperative evaluation within 30 days preceding their low-risk non-cardiac surgery? Low-risk surgery is defined as cardiac or myocardial infarction less than 1%, including (but not limited to) endoscopic pr ocedures, superficial procedures, cataract surgery, and excisional breast surgery: Answer: No Measure 323 - Is this imaging test performed primarily for the monitoring of an asymptomatic patient who had percutaneous coronary intervention on the visit date or within 2 years of the visit date? An swer: No Measure 324 - Is this imaging test performed primarily for the initial detection and risk assessment on an asymptomatic, low coronary heart disease patient? Low CHD risk definition = clinicians should consider the maximum number of available patient factors used to estimate risk based on [place] (A TP III criteria), typically age, gender, diabetes, smoking status, and use of blood pressure medicati on, and integrate age appropriate estimates for missing elements, such as LDL or standard blood press ure. Answer: No Dictated by: Crystal Maurer M.D. on 03/20/2017 at 15:26 Approved by: Crystal Maurer M.D. on 03/20/2017 at 15:34
--- NOTE | 2017-03-20 17:59 | PCM.PNMED ---
Subjective Date of Service March 20, 2017 Subjective No chest pain. Awaiting echocardiogram. Exam Vital Signs Vital Sign - Last Date Time Temp Pulse Resp B/P Pulse Ox O2 Delivery O2 Flow Rate FiO2 03/20/17 16:51 36.8 86 16 159/86 100 Room Air Intake and Output 03/19/17 03/19/17 03/20/17 Cumulative From/Thru 14:59 22:59 06:59 03/19/17 16:30 - 03/20/17 04:48 Intake Total 0 ml 0 ml Output Total 450 ml 450 ml Balance -450 ml -450 ml Intake Oral 0 ml 0 ml Output Urine Total 450 ml 450 ml # Bowel Movements 0 0 Exam General: Obese female who appears in no acute distress while laying down flat, alert and oriented x 3 HEENT: PERRLA, EOMI, sclerae anicteric, oropharynx moist and pink Neck: Soft, nontender, no JVD noted CV: Regular rate and rhythm with soft systolic murmur, peripheral pulses intact and equal Respiratory: CTAB, no wheezing or rhonchi, normal respiratory effort Abdomen: Obese, soft, nontender, and NABS MSK: Muscle strength grossly intact and equal, no swollen or tender joints, no clubbing cyanosis or edema Neuro: Cranial nerves II-12 grossly intact, face symmetric, speaks full and fluent sentences Skin: Warm, dry, intact Psych: Appropriate mood and affect, linear thought process, cooperative IVs and Medications Medications Reviewed: Medications were reviewed in detail Lab and Diagnostics Result Diagram: 03/20/17 0700 03/20/17 0700 X-Rays, CTs and MRIs PROCEDURE: X-RAY CHEST, TWO VIEWS ([id number]) IMPRESSION: No acute cardiopulmonary findings. 12-lead ECG Normal sinus rhythm with a rate of 77, no acute ST changes Additional Diagnostics Stress test normal Assessment & Plan 66-year-old female with history of fibromyalgia, hypothyroidism, RYAN, mood disorder, and DM2 who presents for evaluation of increasing dyspnea on exertion. x 1 week #Dyspnea on exertion, present on admission Uncertain of etiology for this acute episode. D-dimer was negative, EKG was benign, no pertinent findings on labs or physical exam. DDX deconditioning, adrenal insufficiency, anxiety, vasculitis, polypharmacy, infection Discussed patient with PCP, recommendation was echocardiogram and stress testing tomorrow We will place on telemetry for CV monitoring Awaiting echocardiogram. Stress test normal #Hypothyroidism, POA TSH 0.5 on admission Resume home medications when med rec performed #Elevated BP, POA Patient without history of hypertension or on any antihypertensives. BP has been in the 150s systolic consistently Consider initiating a medication if continues to be elevated #T2DM, POA Resume home medications when med rec performed #Mood disorder, POA Resume patient's home medications when MED REC performed #Asymptomatic bacteriuria, POA UA showing moderate LEs, patient currently asymptomatic Continue to monitor and treat as appropriate Tylenol prn pain Zofran prn nausea CODE STATUS: Full resuscitation Disposition: Possible discharge tomorrow morning once echocardiogram results is available VTE Prophylaxis: Sub-Q Enoxaparin, SCDs VTE Mechanical Devices: Intermittant Pneumatic CD Resuscitation Status: CPR: Attempt Resuscitation Tommie Henry MD March 20, 2017 17:59
[2017-03-20] MEDS ORDERED: AMT25T PO (20:05)
[2017-03-20] MEDS ORDERED: Multivit-Miner-Folic Acid-Iron Tablet PO SCH (21:07)
[2017-03-20] MEDS ORDERED: AMITRIPTYLINE PO SCH ×2 (23:00)
[2017-03-21] VITALS (7 sets, daily range): BP systolic 138–149; BP diastolic 66–83; PULSE 64–84; RESP 17–18; O2SAT 95–99
[2017-03-21] MEDS: Sodium Chloride LOK Flush 10 mL Syringe IVFLUSH SCH ×2 (00:30→08:53)
[2017-03-21 01:07] LABS: Vitamin D, 25-Hydroxy 76.8 ng/mL (30.0-100.0)
--- NOTE | 2017-03-21 02:16 | NUR ---
Anxiety in room at start of shift. Pt states she has not slept for days, requests some home meds be resumed that she did not get to take last night. Pt in communicative and in good mood, but expresses concernt that recent dyspnea is related to a heart condition. Sates no SOB or chest pain while laying in bed. Blood sugar checked at pt request- she is on oral medications with no insulin coverage; states that while at home she checks her CS at meals and 2 hr after and is currently having dietary counseling. Care continues
[2017-03-21] MEDS ORDERED: Omega-3 Fatty Acids 1,000 mg Capsule PO SCH (08:30)
[2017-03-21] MEDS ORDERED: buPROPion XL 150 mg ER24 Tablet PO SCH (08:30)
--- NOTE | 2017-03-21 08:58 | NUR ---
Asprin Asprin withheld per pts request until endoscopy complete.
--- NOTE | 2017-03-21 11:22 | DRSVH ---
[facility] [address] [place] [address] Echocardiogram Report Name: ROLANDO EMERY CStudy Date : 03/20/2017 Height: 67 in Hospital Exam Location: [facility] Weight: 213 lb Gender: Female BSA: 2.1 m2 : 1950 Age: 66 yrs BP: 124/76 mmHg Reason For Study: Chest pain History: breast implants Performed By: Marcelo Snyder Referring Physician: Lex Rosado Interpretation Summary The ejection fraction is estimated to be 55-60%. There are no obvious focal wall motion abnormalities noted but poor endocardial definition reduces the sensitivity for the detection of such. The aortic valve is mildly calcified. The ascending aorta is mildly enlarged. There is an anterior echo-free space consistent with a fat pad. Compared to the prior echo report on 2011, there is no significant change. Procedure: A two-dimensional transthoracic echocardiogram with color flow and Doppler was performed. Comparison is made with the echocardiogram of 06/03/2012. The apical views were difficult to obtain and are suboptimal in quality. The patient was in normal sinus rhythm during the exam. Left Ventricle: The left ventricular cavity is small. The ejection fraction is estimated to be 55-60%. There are no obvious focal wall motion abnormalities noted but poor endocardial definition reduces the sensitivity for the detection of such. The E/A ratio is reversed, suggesting impaired early relaxation of the left ventricle or a reduced preload state. Right Ventricle: The right ventricle grossly appears normal in size with probable normal systolic function. Atria: The left atrium is not well visualized. Right atrium not well visualized. There is no Doppler evidence for an interatrial shunt. Mitral Valve: The mitral valve is grossly normal. There is no mitral regurgitation noted. Aortic Valve: The aortic valve is grossly normal. The aortic valve is mildly calcified. No spectral Doppler of the aortic valve obtained due to off axis angle. There is trace aortic regurgitation. Tricuspid Valve: The tricuspid valve is not well visualized, but is grossly normal. Pulmonary artery pressures cannot be estimated because of the lack of a measurable TR jet velocity. Pulmonic Valve: The pulmonic valve is not well visualized. Great Vessels: The aortic root is normal size. The ascending aorta is mildly enlarged. The aortic arch is normal in size. The IVC is of normal diameter and collapses less than 50% with a sniff. This suggests a right atrial pressure of 8 mm Hg. Pericardium/ Pleura There is an anterior echo-free space consistent with a fat pad. There is no pericardial effusion. MMode/2D Measurements & Calculations LVIDd: 3.5 cm LA A4 area LVOT diam: 2.1 cm LV palumbo. diameter/BSA LVIDs: 2.5 cm Ao root diam (cm/m^2): 1.7 FS: 28.1 % EPSS: 0.46 cm LA length asc Aorta Diam IVSd: 1.1 cm (vol): 4.0 cm LVPWd: 1.2 cm IVC diam Ao Arch Diam (Prox : 1.0 cm Trans): 2.7 cm LV sys. diameter/BSA (cm/m^2): 1.2 Doppler Measurements & Calculations MV E max min MV E/A: 0.52 PA V2 max MV dec time : 37.0 cm/sec Med Peak E' Min : 78.2 cm/sec : 0.21 sec MV A max min PA mean PG : 71.8 cm/sec E/E' med: 6.9 MV P1/2t: 61.9 msec PA Accel Time MV P1/2t max min PA V2 mean : 50.0 cm/sec PA pr(Accel) MVA(P1/2t): 3.6 cm2 : 16.1 mmHg Electronically signed by: Edin Perla on Reading Physician:03/21/2017 11:21 AM
--- NOTE | 2017-03-21 11:36 | PCM.DIMED ---
Discharge Instructions Date of Service March 21, 2017 Dates of Hospitalization March 19, 2017 at 21:27 Discharge Diagnosis Discharge Diagnosis #Dyspnea on exertion, present on admission Uncertain of etiology .ACS ruled out, echocardiogram unchanged from prior study. #Hypothyroidism, POA TSH 0.5 on admission # Hypertension, POA, new diagnoses #T2DM, POA #Mood disorder, POA Diet Low fat, Low Sodium Activity Limited until seen by PCP Call your provider Fever or Chills, Shortness of breath, Bleeding, Chest pain, Vomitting, Excessive diarrhea, Weakness (unilateral) Patient Instructions You were hospitalized to due to exertional dyspnea. Cause of dyspnea remains unclear. Pulmonary embolism ruled out by negative d-dimer. Chest x-ray normal. Echocardiogram unchanged from 2012. Stress test normal.you have been having high blood pressure in the hospital. I have started you on amlodipine 2.5 mg daily. your Calcium is high. Please stop taking calcium. Please follow- up with your PCP for further workup of your exertional dyspnea. Follow-up plan Please follow-up with PCP in 1 week. Follow-up Provider: Lex Rosado MD Follow-up with PCP in: 1 week Tommie Henry MD March 21, 2017 11:36
[2017-03-21] MEDS ORDERED: ASPI81TA3 PO (11:42)
[2017-03-21] MEDS ORDERED: AMLO5TAB2 PO (11:42)
--- NOTE | 2017-03-21 12:00 | PCM.DC.MED ---
Discharge Summary Date of Service March 21, 2017 Dates of Hospitalization Date of Hospital Admission March 19, 2017 at 21:27 Date of Discharge: March 21, 2017 Providers: Admitting Physician: Macario Medley MD Primary Care Physician: Lex Rosado MD Attending Physician: Macario Medley MD Diagnosis at Time of Discharge Diagnosis at Time of Discharge #Dyspnea on exertion, present on admission Uncertain of etiology .ACS ruled out, echocardiogram unchanged from prior study. #Hypothyroidism, POA TSH 0.5 on admission # Hypertension, POA, new diagnoses #T2DM, POA #Mood disorder, POA Procedures XRay, CTs & MRIs PROCEDURE: X-RAY CHEST, TWO VIEWS ([id number]) IMPRESSION: No acute cardiopulmonary findings. ECG 12 Lead Normal sinus rhythm with a rate of 77, no acute ST changes Cardiac Echo Impression Interpretation Summary The ejection fraction is estimated to be 55-60%. There are no obvious focal wall motion abnormalities noted but poor endocardial definition reduces the sensitivity for the detection of such. The aortic valve is mildly calcified. The ascending aorta is mildly enlarged. There is an anterior echo-free space consistent with a fat pad. Compared to the prior echo report on 2011, there is no significant change. Other Diagnostics Stress test normal Brief History 66-year-old female with history of fibromyalgia, hypothyroidism, RYAN, mood disorder, and DM2 who presents for evaluation of increasing dyspnea on exertion. Patient reports that in the last week or 2, she notes that her exertional tolerance has been decreasing. It has gotten to the point where she walks 6 or 7 steps she will feel short of breath and have to stop to catch her breath. She reports that when she is immobile, she is asymptomatic and is able to speak full sentences. She occasionally will feel palpitations, but denies any chest pain, headache, dizziness, diaphoresis, or LOC. She has not noted any triggers and is able to sleep flat at home. She denies any recent illnesses or medication changes. She reports history of panic attacks, but states that usually manifests as chest pain. She has never had any attacks recently and does not feel any increased stress. She did have a low risk stress test in 2014 for dyspnea In the ED she was afebrile with a pulse of 91 and a blood pressure of 154/80, saturating 99% on room air. Her CBC and CMP were unremarkable except for mildly elevated creatinine of 1.06. Her TSH was 0.5 Her d-dimer was negative, and her UA did show moderate leukocyte esterase, although patient denied any dysuria or frequency Hospital Course 66-year-old female with history of fibromyalgia, hypothyroidism, RYAN, mood disorder, and DM2 who presents for evaluation of increasing dyspnea on exertion. x 1 week #Dyspnea on exertion, present on admission Uncertain of etiology at this point. Possibly deconditioning. D-dimer was negative, EKG was benign, no pertinent findings on labs or physical exam. echocardiogram and stress testing unremarkable telemetry unrevealing BP noted to be elevated systolic 140s and 150s. Started on amlodipine 2.5 mg by mouth daily. Unsure if hypertension it is contributing to her symptoms #Hypothyroidism, POA TSH 0.5 on admission Resume home medications #Elevated BP, POA Patient without history of hypertension or on any antihypertensives. BP has been in the 150s systolic consistently Started amlodipine 2.5 mg daily. Advised patient to check her blood pressure at home . #T2DM, POA Resume home medications #Mood disorder, POA Resume patient's home medications #Asymptomatic bacteriuria, POA UA showing moderate LEs, patient currently asymptomatic Urine culture mixed timothy. No treatment indicated CODE STATUS: Full resuscitation Disposition: Discharge home Condition on discharge stable Advised follow-up with PCP for further workup. Exam Vital Signs (Last) Date Time Temp Pulse Resp B/P Pulse Ox O2 Delivery O2 Flow Rate FiO2 03/21/17 10:00 CPAP/BIPAP 03/21/17 09:16 36.8 78 18 142/77 96 Exam General: Obese female who appears in no acute distress while laying down flat, alert and oriented x 3 HEENT: PERRLA, EOMI, sclerae anicteric, oropharynx moist and pink Neck: Soft, nontender, no JVD noted CV: Regular rate and rhythm with soft systolic murmur, peripheral pulses intact and equal Respiratory: CTAB, no wheezing or rhonchi, normal respiratory effort Abdomen: Obese, soft, nontender, and NABS MSK: Muscle strength grossly intact and equal, no swollen or tender joints, no clubbing cyanosis or edema Neuro: Cranial nerves II-12 grossly intact, face symmetric, speaks full and fluent sentences Skin: Warm, dry, intact Psych: Appropriate mood and affect, linear thought process, cooperative Test 03/19/17 18:30 03/19/17 20:35 03/20/17 07:00 03/20/17 09:18 D-Dimer < 0.50mg/L FEU (<0.50) Hemoglobin A1c 7.1% (4.8-5.6) Magnesium Level 1.9mg/dL (1.6-2.6) Total Bilirubin 0.3mg/dL (0.0-1.2) Aspartate Amino Transf (AST/SGOT) 34U/L (0-50) Alanine Aminotransferase (ALT/SGPT) 38U/L (0-32) Alkaline Phosphatase 98U/L (25-165) Pro-B-Type Natriuretic Peptide 19.60pg/mL (0-301) Total Protein 7.8g/dL (6.4-8.4) Albumin 4.5g/dL (3.4-5.0) Thyroid Stimulating Hormone (TSH) 0.502uIU/mL (0.450-4.500) Urine Color Straw (YELLOW) Urine Appearance Clear (CLEAR,HAZY) Urine pH 6.0 (5.0-8.0) Urine Specific [place] 1.005 (1.003-1.035) Urine Protein Negativemg/dL (NEG,TRACE) Urine Glucose (UA) Negativemg/dL (NEGATIVE) Urine Ketones Negativemg/dL (NEGATIVE) Urine Occult Blood Negative (NEGATIVE) Urine Nitrite Negative (NEGATIVE) Urine Bilirubin Negative (NEGATIVE) Urine Urobilinogen Normalmg/dL (NORMAL) Urine Leukocyte Esterase Moderate (NEGATIVE) Urine RBC 0-2/hpf (0-2) Urine WBC 0-5/hpf (0-5) Urine Epithelial Cells Occasional/hpf (NONE-MOD) Urine Crystals None seen (NONE SEEN) Urine Bacteria Few/hpf (NONE-FEW) Urine Hyaline Casts None/lpf (NONE) Urine Granular Casts None seen (NONE SEEN) Urine Waxy Casts None seen (NONE SEEN) Urine Red Blood Cell Casts None seen (NONE SEEN) Urine White Blood Cell Casts None seen (NONE SEEN) Urine Mucus None seen (None Seen) Urine Trichomonas None seen (NONE SEEN) Urine Yeast None (NONE SEEN) Urinalysis Comment None Urine Culture Reflexed Indicated Hold Urine Received (Received) White Blood Count 7.1th/mm3 (3.8-10.1) Red Blood Count 4.60mil/mm3 (3.90-5.20) Hemoglobin 13.4g/dL (12.0-15.6) Hematocrit 40.1% (35.0-46.0) Mean Corpuscular Volume 87.2fL (81-100) Mean Corpuscular Hemoglobin 29.1pg (27.0-35.0) Mean Corpuscular Hemoglobin Concent 33.4% (32.0-37.0) Red Cell Distribution Width 14.5% (12.3-15.4) Platelet Count 276bil/L (150-400) Neutrophils (%) (Auto) 59.2% (40-74) Lymphocytes (%) (Auto) 27.4% (14-46) Monocytes (%) (Auto) 10.7% (4-12) Eosinophils (%) (Auto) 1.8% (0-5) Basophils (%) (Auto) 0.6% (0-3) Sodium Level 140mEq/L (134-144) Potassium Level 4.8mEq/L (3.5-5.2) Chloride Level 100mEq/L (97-108) Carbon Dioxide Level 24mmol/L (18-29) Blood Urea Nitrogen 17mg/dL (8-27) Creatinine 1.04mg/dL (0.57-1.00) Estimat Glomerular Filtration Rate 76mL/min (>59) Glucose Level 131mg/dL (60-99) Calcium Level 10.2mg/dL (8.5-10.1) Troponin T 0.010ug/L (0.0-0.011) Triglycerides Level 330mg/dL (0-149) Cholesterol Level 254mg/dL (100-199) LDL Cholesterol, Calculated 142.000mg/dL (0-99) VLDL Cholesterol 66.000mg/dL HDL Cholesterol 46mg/dL (>39) Cholesterol/HDL Ratio 5.52 (0.0-4.4) Calcium (Send out) 9.8mg/dL (8.7-10.3) Vitamin D 25-Hydroxy 76.8ng/mL (30.0-100.0) Parathyroid Hormone Interpretation Comment (.) Total Intact Parathyroid Hormone 37pg/mL (15-65) Discharge Medications Discharge Medications ([Vit D3 ]) 4,000 IU PO BID (Reported) ([B12]) 500 MCG PO DAILY (Reported) Amitriptyline (Amitriptyline) 25 Mg Tab 75 MG PO HS (Reported) Amlodipine (Amlodipine) 5 Mg Tablet 2.5 MG PO DAILY Prescribed by: RYANN BELTRÁN MD Aspirin Chew (Aspirin Chew) 81 Mg Chew 81 MG PO DAILY Prescribed by: RYANN BELTRÁN MD Bupropion ER (Wellbutrin XL) 150 Mg Tab.er.24h 300 MG PO DAILY (Reported) Glimepiride (Glimepiride) 4 Mg Tablet 4 MG PO BIDWM (Reported) Levothyroxine (Levothyroxine) 112 Mcg Tablet 112 MCG PO DAILY (Reported) Magnesium Citrate (Magnesium Citrate) 296 Ml Solution 148 ML PO DAILY Prescribed by: ORALIA SIDHU Magnesium Oxide (Mag-Oxide) 400 Mg Tablet 400 MG PO DAILY (Reported) Multivitamin (Once Daily) 1 Each Tablet 1 EACH PO DAILY (Reported) [place]-3/Dha/Epa/Fish Oil (Fish Oil 1,400 mg Softgel) 1 Each Capsule.dr 1 EACH PO DAILY (Reported) As needed Alprazolam (Alprazolam) 1 Mg Tablet 1 MG PO TID PRN PRN For Anxiety or Agitation (Reported) Followup Plan Disposition: Home Follow-up plan Please follow-up with PCP in 1 week. Discharge Diet: Low fat, Low Sodium Discharge Activity: Limited until seen by PCP Patient Instructions You were hospitalized to due to exertional dyspnea. Cause of dyspnea remains unclear. Pulmonary embolism ruled out by negative d-dimer. Chest x-ray normal. Echocardiogram unchanged from 2012. Stress test normal.you have been having high blood pressure in the hospital. I have started you on amlodipine 2.5 mg daily. your Calcium is high. Please stop taking calcium. Please follow- up with your PCP for further workup of your exertional dyspnea. Follow-up Provider: Lex Rosado MD Follow-up with PCP in: 1 week copies to: Lex Rosado MD, Melaku MD March 21, 2017 12:00
--- NOTE | 2017-03-21 14:19 | NUR ---
Social Work- Discharge Data: EMR reviewed. Pt is on day 2 of hospitalization for profound new onset dyspnea on exertion per H&P. Pt is medically stable to discharge today. Pt is independent at baseline. Pt to discharge home via POV. No discharge needs. Assessment:Pt who is independent at baseline. Plan: Pt to discharge home when medically stable via POV. No discharge needs. CESAR Dean
--- NOTE | 2017-03-21 18:09 | NUR ---
Discharge Pt discharged at 1605 in w/c to private vehicle with . Pt having no SOB or any c/o pain. A&O x 3, WALL, VSS. Pt had no reaction to new medication started. IV removed intact. Pt has care notes, discharge and new rx's. All questions answered and has all belongings. Addendum: 03/21/17 at 1811 by MAGDALENA OVERTON RN At discharge pt declined ASA rx stating that she cannot take it. notified and rx put in shred bin.
== END 2017-03-21 16:04 | disposition home or self-care (01) ==
LOC: SED 16:28 → OSC 21:27
PROVIDERS: ADMIT Hospitalist; ATTEND Hospitalist
DX: R06.09 Other forms of dyspnea (principal); E03.9 Hypothyroidism, unspecified; I10 Essential (primary) hypertension; E11.9 Type 2 diabetes mellitus without complications; F39 Unspecified mood [affective] disorder; R06.02 Shortness of breath; I35.0 Nonrheumatic aortic (valve) stenosis; I34.0 Nonrheumatic mitral (valve) insufficiency; E78.5 Hyperlipidemia, unspecified; M79.7 Fibromyalgia; K21.9 Gastro-esophageal reflux disease without esophagitis; G47.33 Obstructive sleep apnea (adult) (pediatric); F41.8 Other specified anxiety disorders; J45.909 Unspecified asthma, uncomplicated; Z79.84 Long term (current) use of oral hypoglycemic drugs; Z87.891 Personal history of nicotine dependence; Z85.3 Personal history of malignant neoplasm of breast; Z79.82 Long term (current) use of aspirin; Z88.8 Allergy status to other drugs, medicaments and biological substances; Z91.018 Allergy to other foods
CPT/HCPCS: 36415; 71020; 78452; 80048; 80053; 80061; 81000; 82306; 82310; 83036; 83735; 83880; 83970; 84443; 84484; 85025; 85378; 87086; 87088; 93005; 93017; 94799; 96374; 96376; 99285; A9502; C8929; G0378; J1650; J2060; J2785

== ENCOUNTER 2017-04-28 17:40 | Emergency (ER) | payer MEDICARE ==
[~2017-04-28] VITALS: Ht 170.2 cm; Wt 100.5 kg
[~2017-04-28 17:40] MED LIST changes: +ALPR1TAB7 PO; -ALPRAZOLAM1 MG PO; +AMLO5TAB2 PO; +AMT25T PO; -ASPI-628 PO; +ASPI81TA3 PO; -CYT5 PO; -DIAZ10TA PO; -FUR80 PO; +GLIM4TAB2 PO; -GLYB5TAB3 PO; +LEVO112T4 PO; +MULT-666 PO; -ONDA8TAB10 PO; -POTA10TA; -SYN.112T PO
[2017-04-28 17:44] VITALS: BP 129/66; PULSE 70; RESP 24; O2SAT 97
--- NOTE | 2017-04-28 18:27 | ED.REPORT ---
HPI-Chest Pain 40 and Over Date of Service Apr 28, 2017 ED Provider: Dr. Ralph Hickman MD A 66 year old female with a history of fibromyalgia and chronic pain presents to the ED complaining of rib pain that began 1 week ago secondary to a GLF. Her initial fall occurred one week ago and the patient reports a second GLF that occurred today after "losing her footing". The pain in her ribs is exacerbated by coughing and movement. Patient began lifting heavy objects 2 days ago and aggravated the pain. She presents today because the pain became increasingly worse this morning. She denies any recent fever, chills, SOB or diaphoresis. Nursing Notes Stated Complaint: RIB PAIN Chief Complaint: Chest Pain-Non Cardiac Nature Nursing Notes Reviewed: Yes Allergies: Coded Allergies: simvastatin (Verified Allergy, Severe, gout reaction/MYALGIAS, 03/20/17) topiramate (Verified Allergy, Severe, RASH, 03/20/17) gabapentin (Verified Allergy, Unknown, 03/20/17) morphine (Verified Allergy, Unknown, UNKNOWN, 03/20/17) pregabalin (Verified Allergy, Unknown, 03/20/17) soy (Verified Allergy, Unknown, UNKNOWN, 03/20/17) Scheduled ([Vit D3 ]) 4,000 IU PO BID ([B12]) 500 MCG PO DAILY Amitriptyline (Amitriptyline) 25 Mg Tab 75 MG PO HS Amlodipine (Amlodipine) 5 Mg Tablet 5 MG PO DAILY Bupropion ER (Wellbutrin XL) 150 Mg Tab.er.24h 300 MG PO DAILY Glimepiride (Glimepiride) 4 Mg Tablet 4 MG PO BIDWM Levothyroxine (Levothyroxine) 112 Mcg Tablet 112 MCG PO DAILY Magnesium Citrate (Magnesium Citrate) 296 Ml Solution 148 ML PO DAILY Magnesium Oxide (Mag-Oxide) 400 Mg Tablet 400 MG PO DAILY Multivitamin (Once Daily) 1 Each Tablet 1 EACH PO DAILY [place]-3/Dha/Epa/Fish Oil (Fish Oil 1,400 mg Softgel) 1 Each Capsule. 1 EACH PO DAILY Scheduled PRN Alprazolam (Alprazolam) 1 Mg Tablet 1 MG PO TID PRN PRN For Anxiety or Agitation General Time Seen by MD: 18:25 Chief Complaint Chest pain (Non-cardiac) Hx Obtained From: Patient Arrived By: Walk-in Sudden in Onset?: No Onset Occurred: 1 week ago Context of Onset: Accident, Slip and fall Symptom Duration: Since onset Location: : Chest right Quality: Painful Radiation: : Does not radiate Migration/Movement: Reports: None Severity: Current: Moderate Severity: Maximum: Moderate Associated with: Denies: Diaphoresis, Fever, Shortness of Breath Pertinent Negative: Pt denies other symptoms Recent Healthcare: No recent doctor visit, No recent hospitalization Risk Factors )( CAD Risk Stratification Risk factors N/A )( TAD Risk Stratification Risk factors N/A )( PE Risk Stratification Risk factors N/A Past Medical History Past Medical History 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 Dyslipidemia Hypothyroidism Gastroesophageal reflux disease. Chronic liver transaminase elevations. Fibromyalgia and chronic pain. Obstructive sleep apnea and daytime somnolence. Mild aortic insufficiency. She reports history of cardiac complications of weight reduction pills. Chronic depression and anxiety. Reports: Asthma, Diabetes mellitus Past Surgical History Bilateral Mastectomy Carpal tunnel surgery on both hands. Trigger finger surgery on the right. Lipoma removal from the tailbone area. Right knee surgery to remove loose bone fragment. Family History Heart disease in both parents. No heart issues in siblings. Smoking History Former Smoker Social History Other Social History: Good social support, , Local resident Ambulatory Status Independent Review of Systems Constitutional: Denies: Chills, Fever Respiratory: Denies: Shortness of breath Cardiovascular: Reports: Chest pain (RIb pain ) Skin: Denies Diaphoresis Complete sys rev & neg: except as marked. Physical Exam Initial Vital Signs Vital Signs (First) Date Time Temp Pulse Resp B/P Pulse Ox O2 Delivery O2 Flow Rate FiO2 04/28/17 17:44 36.1 70 24 129/66 97 Room Air Initial VS: Reviewed Head / Eyes: Atraumatic, Normocephalic, PERRL Neck: Supple, Non-tender, Full range of motion Extremities: Vascular intact, Neuro intact, No swelling, No tenderness Skin: Warm, Dry, No cyanosis Neurologic: Alert, Oriented, Nonfocal Psychiatric: Mood/affect normal, Behavior normal, Normal thought content General/Constitutional: Awake, Alert, No acute distress, Well appearing, Well developed Respiratory / Chest: Atraumatic, Breath sounds NL, Breath sounds = bilat, No respiratory distress CHEST: Right upper rib tenderness (localized in area of fracture identified on CXR) Cardiovascular: Heart rate NL, Regular rhythm, Heart sounds NL Abdomen: Atraumatic, Soft, Non-tender Interpretation & Diagnostics X-Ray Chest Interpretation Chest Xray Interpretation: IMPRESSION: Mildly displaced right lateral seventh rib fracture. Additional possible nondisplaced right sixth rib fracture although this is technically indeterminate. Dictated by: Cuco Kurtz M.D. on 04/28/2017 at 19:02 Interpretation / Wet Read by: Interpret - Radiologist Re-Eval/Medical Decision Time of Eval: 19:13 Re-Evaluation/Progress Note: Pt is informed of her results and the plan to discharge with follow up. She reports that her symptoms have improved. Counseled Regarding: Diagnosis, Need for follow-up, When/why to return to ED Discharge & Departure Primary Impression: Rib fracture Encounter type: initial encounter Rib fracture type: single rib Fracture type: closed Laterality: right Qualified Code: S22.31XA - Fracture of one rib, right side, initial encounter for closed fracture Additional Impression: Fall from ground level Disposition: Home Discharge Condition All VS Reviewed: Yes Condition: Improved Patient Instructions: Rib Fracture (ED) Additional Instructions: Thank you for trusting us with your care this evening. Your emergency department chest X-ray revealed a fracture of your 7th rib. This should heal without intervention but it will likely take a few weeks. Make sure to take a deep breath every hours. I recommend that you schedule a follow-up appointment with Dr. Rosado tomorrow to discuss pain management. Use ice intermittently for pain. Take 1 oxycodone every 4 hours until you are able to follow up with Dr. Rosado. Please return to the emergency department for any new or worsening conditions including any worsening pain, shortness of breath, fevers, chills or vomiting. Referrals: Lex Rosado MD (PCP) Scribe Attestation Portions of this note were transcribed by Amanda Morejon. I, Dr. Hickman personally performed the history, physical exam and medical decision-making; I reviewed and confirmed the accuracy of the information in the transcribed note. Signed by: Mayra Bailey, 04/28/17 1940. copies to: Lex Rosado MD, Kirk H MD Apr 28, 2017 18:26 AMANDA MOREJON Apr 28, 2017 19:05
[2017-04-28] MEDS ORDERED: HYDROcodone-APAP 7.5-325 mg Tablet PO ONE (18:40)
--- NOTE | 2017-04-28 19:05 | DRSVH ---
PROCEDURE: X-RAY RIGHT RIBS, TWO VIEWS ([id number]) INDICATIONS: Fell TECHNIQUE: 2 views of the right ribs were acquired. COMPARISON: None. FINDINGS: Surgical changes and devices: None. Bones and chest wall: Mildly displaced right lateral seventh rib fracture. Possible nondisplaced sixt h rib fracture although technically indeterminate No suspicious bony lesions. Overlying soft tissues appear unremarkable. Lungs and pleura: The visualized lung appears clear. No pleural effusions or pneumothorax are visib le. IMPRESSION: Mildly displaced right lateral seventh rib fracture. Additional possible nondisplaced right sixth rib fracture although this is technically indeterminate. Dictated by: Cuco Kurtz M.D. on 04/28/2017 at 19:02 Approved by: Cuco Kurtz M.D. on 04/28/2017 at 19:04
[2017-04-28] MEDS ORDERED: AMLO5TAB2 PO (19:19)
[2017-04-28 19:26] VITALS: BP 138/72; PULSE 69; RESP 15; O2SAT 98
== END 2017-04-28 19:21 | disposition home or self-care (01) ==
LOC: SED 17:40
DX: S22.31XA Fracture of one rib, right side, initial encounter for closed fracture (principal); W18.30XA Fall on same level, unspecified, initial encounter; Y93.89 Activity, other specified; Y92.9 Unspecified place or not applicable; Y99.8 Other external cause status; M79.7 Fibromyalgia; G89.29 Other chronic pain; J45.909 Unspecified asthma, uncomplicated; E11.9 Type 2 diabetes mellitus without complications; K21.9 Gastro-esophageal reflux disease without esophagitis; E78.5 Hyperlipidemia, unspecified; Z87.891 Personal history of nicotine dependence; Z88.5 Allergy status to narcotic agent; Z88.8 Allergy status to other drugs, medicaments and biological substances
CPT/HCPCS: 71100; 96372; 99284; J1885

== ENCOUNTER 2017-06-25 07:56 | Day surgery (SDC) | payer MEDICARE ==
[~2017-06-25] VITALS: Ht 167.6 cm; Wt 94.8 kg
[~2017-06-25 07:56] MED LIST changes: -ASPI81TA3 PO; +Lactated Ringer's 1,000 ML IV ONE
[2017-06-25] MEDS ORDERED: Propofol 10,000 mCg/mL 20 mL Inj ONE (07:57)
[2017-06-25 08:07] VITALS: BP 134/80; PULSE 72; RESP 16; O2SAT 99
[2017-06-25] MEDS ORDERED: Lactated Ringer's 1,000 ML IV SCH (08:36)
--- NOTE | 2017-06-25 08:36 | PCM.HPANE ---
Patient Data Surgeon Admitting Provider: Attending Provider:Uche Colvin MD Primary Care Physician:Lex Rosado MD Other Provider:[facility] Anest[facility] Reason for Visit Constipation Ht/WT & BMI Body Mass Index Allergies Coded Allergies: simvastatin (Verified Allergy, Severe, gout reaction/MYALGIAS, 03/20/17) topiramate (Verified Allergy, Severe, RASH, 03/20/17) gabapentin (Verified Allergy, Unknown, 03/20/17) morphine (Verified Allergy, Unknown, UNKNOWN, 03/20/17) pregabalin (Verified Allergy, Unknown, 03/20/17) soy (Verified Allergy, Unknown, UNKNOWN, 03/20/17) Past Anesthesia History Anesthesia History: Denies:: Anesthesia Reactions, Malignant Hyperthermia Diabetes History Hx Diabetes?: Yes (II) Type of Diabetes: Type II Glycemic Control: Oral Medication MRSA MRSA: No Medications Active Scripts Magnesium Citrate 296 Ml [id number] Ml PO DAILY CONSTIPATION #1 BOTTLE Prov:Garett Anaya PA-C 12/26/16 Reported Medications Amlodipine 5 Mg Tablet5 Mg PO DAILY Ref 0 04/28/17 Amitriptyline 25 Mg Tab75 Mg PO HS Ref 0 03/20/17 Multivitamin (Once Daily)1 Each Tablet1 Each PO DAILY 03/20/17 Levothyroxine 112 Mcg [id number] Mcg PO DAILY For Thyroid Replacement Ref 0 03/20/17 Glimepiride 4 Mg Tablet4 Mg PO BIDWM #30 TABLET Ref 0 03/20/17 Alprazolam 1 Mg Tablet1 Mg PO TID PRN For Anxiety or Agitation Ref 0 03/20/17 Bupropion ER (Wellbutrin XL)150 Mg Tab.er.12b893 Mg PO DAILY Ref 0 07/16/14 Magnesium Oxide (Mag-Oxide)400 Mg [id number] Mg PO DAILY 07/16/14 [B12] No Conflict [id number] Mcg PO DAILY 07/16/14 [place]-3/Dha/Epa/Fish Oil (Fish Oil 1,400 mg Softgel)1 Each Capsule.dr1 Each PO DAILY 07/16/14 [Vit D3 ] No Conflict Check4,000 Iu PO BID 07/16/14 History History of ENT Problems?: Yes HEENT History: Positive for:: Sinus Problem Denture Type: None Teeth Condition: Missing Teeth Hx of Heart Problems?: Yes Cardiovascular History: Positive for:: Congestive Heart Failure (unsure) Edema (legs) Heart Murmur (damge to mitral and aortic valve FROM FEN-FEN) Hypertension Valvular Heart Disease (ECHO SHOWS MILD DISEASE/AORTIC & MITRAL VALVE) Hx of Respiratory Problem?: Yes Respiratory History: Positive for:: Asthma Dyspnea Pneumonia (HX OF) Use of C-PAP Machine (RYAN+) Denies:: Tuberculosis (positive skin tests) Hx Neurologic Problems?: Yes Neurological History: Positive for:: Headaches Hx of GI Problems?: Yes Hx of Problems?: Yes Female Hx: Positive for:: Problems with Breasts? (Breast CA S/P BILAT MASTECTOMIES RECONSTRUCTION=CURRENT PROBLEM) Denies:: Currently Skin History: Positive for:: History Skin Disorders? (rashes to face, arms and hands cream prn) Hx Musculoskeletal Problems?: Yes Musculoskeletal History: Positive for:: Musculoskeletal Trauma (S/P RT KNEE SCOPE) Denies:: Back Injury (C/OF CHRONIC BACK PAIN) Hx of Psycho/Social Problems?: Yes Psycho Social History: Positive for:: Anxiety Bipolar Disorder Hx Depression Hx Surgeries?: Yes (mastectomy, r knee surgury, BILAT WRIST, ) Hx Any Other Health Problems?: Yes Other History: Positive for:: Cancer (Breast CA) Hospitalization Thyroid Disease Denies:: Endocrine Disease History Blood Transfusions: Denies:: Blood Transfusions Hx Diabetes: Yes (II) Hx Alcohol Use: NoHx Substance Use: No Smoking Status: Former Smoker Have You Smoked inLast 12 mo: No Stop/Bang Risk Assessment Category Category 1A: Patient has history of documented sleep apnea, and HAS NOT received any narcotic, sedative or anesthesia administration during this stay. Category 1B: Patient has history of documented sleep apnea, and HAS received any narcotic , sedative or anesthesia administration during this stay Category 2: Patient has SUSPECTED Obstructive Sleep Apnea, and HAS received any narcotic , sedative or anesthesia administration during this stay. Category 3: Patient has SUSPECTED Obstructive Sleep Apnea and HAS NOT received narcotic, sedative or anesthesia administration during this stay. Category 4: Outpatient in Procedural Areas with known sleep apnea or who screen positive for High Risk via the STOP/BANG questionnaire. Exam Exam General Appearance: Alert HEENT/AIRWAY: MP 2, Neck Movement (FROM,3 FB) Lungs: Clear to Auscultation Heart: Regular Rate/Rhythm Plan Impression Patient chart reviewed, patient interviewed and anesthestic plan with risks, benefits, and alternatives discussed, and informed consent obtained. NPO per Anesth. Guidelines: Yes ASA Physical Status: ASA2 Mod Systemic Disease Anesthetic Plan: MAC Bene/Risks/Altern/Consents: Yes HP Complete Prior to Induction: Yes Baldev Li MD Jun 25, 2017 07:42
[2017-06-25] MEDS ORDERED: MetoCLOpramide 5 mg/mL 2 mL Inj IVPUSH PRN (08:40)
[2017-06-25] MEDS ORDERED: Ondansetron 2 mg/mL 2 mL Inj IVPUSH PRN (08:40)
[2017-06-25 08:57] VITALS: BP 119/64; PULSE 65; RESP 16; O2SAT 99
--- NOTE | 2017-06-25 09:04 | PCM.ANEP1 ---
Post Anesthesia PACU Phase 1 Assessment Vital Signs Vital Signs Date Time Temp Pulse Resp B/P Pulse Ox O2 Delivery O2 Flow Rate FiO2 06/25/17 08:57 36.3 65 16 119/64 99 Room Air 06/25/17 08:07 36.2 72 16 134/80 99 Room Air Anesthetic Administered: MAC Level of Alertness: Awake, talking WALL's with Equal Strength: Yes Pain: No Nausea or Vomiting: No CV Function & Hydration Stable: Yes Airway Device: Oxygen Delivery: Nasal Cannula Lungs: Clear to Auscultation Dermatome Level: Full Sensation PACU Phase 2 Assessment Complications: No Follow up Care: N/A Patient Instructions Provided: N/A Baldev Li MD Jun 25, 2017 09:04
[2017-06-25 09:06] VITALS: BP 125/67; PULSE 63; RESP 16; O2SAT 99
--- NOTE | 2017-06-25 09:12 | ENDO ---
[address] [address] ENDOSCOPY PROCEDURE PATIENT: ROLANDO EMERY : 1950 MR#: [id number] ADMIT: 06/25/2017 JOB ID: [id number] DATE: 06/25/2017 TYPE OF OPERATION: Colonoscopy. PREOPERATIVE DIAGNOSIS: Family history of colon cancer and constipation. POSTOPERATIVE DIAGNOSIS: Normal colonoscopy. ANESTHESIA: Monitored anesthesia care. COMPLICATIONS: None. BLOOD LOSS: Minimal. DESCRIPTION OF PROCEDURE: After risks and benefits explained to the patient, informed consent was obtained. After anesthesia administered, colonoscope was then inserted from rectum to the cecum. Mucosa carefully examined. Prep of the patient was fair. After procedure was done, the scope withdrawn and the procedure terminated. FINDINGS: Upon inspection of the anus, no masses, hemorrhoids, ulcers, or fissures that were seen. Throughout the entire examination no polyps, masses, or lesions. Retroflexion normal. IMPRESSION: Normal colonoscopy. RECOMMENDATIONS: Repeat colonoscopy in five years given family history of colon cancer.
[2017-06-25 09:15] VITALS: BP 115/69; PULSE 70; RESP 16; O2SAT 98
== END 2017-06-25 23:59 | disposition home or self-care (01) ==
LOC: END 07:56
PROVIDERS: ATTEND Internal Medicine Gastroenterology
DX: Z12.11 Encounter for screening for malignant neoplasm of colon (principal); K64.8 Other hemorrhoids; K76.0 Fatty (change of) liver, not elsewhere classified; E07.9 Disorder of thyroid, unspecified; K59.00 Constipation, unspecified; E11.9 Type 2 diabetes mellitus without complications; I50.9 Heart failure, unspecified; R60.9 Edema, unspecified; I10 Essential (primary) hypertension; J45.909 Unspecified asthma, uncomplicated; G47.33 Obstructive sleep apnea (adult) (pediatric); F31.9 Bipolar disorder, unspecified; M79.7 Fibromyalgia; K21.9 Gastro-esophageal reflux disease without esophagitis; R51 Headache; Z80.0 Family history of malignant neoplasm of digestive organs; Z87.891 Personal history of nicotine dependence; Z79.899 Other long term (current) drug therapy
CPT/HCPCS: G0105; J2704; J7120

== ENCOUNTER 2017-07-03 15:46 | Emergency (ER) | payer MEDICARE ==
[~2017-07-03] VITALS: Ht 168.9 cm; Wt 96.8 kg
[~2017-07-03 15:46] MED LIST changes: -Lactated Ringer's 1,000 ML IV ONE
[2017-07-03 15:52] VITALS: BP 130/73; PULSE 74; RESP 24; O2SAT 99
--- NOTE | 2017-07-03 16:01 | ED.REPORT ---
HPI-Trauma Minor / Fall Date of Service Jul 03, 2017 ED Provider: Contreras Lopez MD Pt is a 66 y/o female w/ a hx of DM, breast CA s/p bilateral mastectomy, presenting to the ED via EMS with her due to fall from about 2 feet which occurred prior to arrival. The patient was standing on a chair trying to reach some pots and fell causing her to hit her back against a corner of a wall somewhat violently and is now experiencing left-sided thoracic back pain. She c/ o associated SOB secondary to pain. Pt denies any other sites of injury, change in LOC. She is not anticoagulated. TDAP up to date. Nursing Notes Stated Complaint: FALL WITH BACK AND RIB PAIN Chief Complaint: Multiple Trauma/Fall Nursing Notes Reviewed: Yes Allergies: Coded Allergies: simvastatin (Verified Allergy, Severe, gout reaction/MYALGIAS, 03/20/17) topiramate (Verified Allergy, Severe, RASH, 03/20/17) gabapentin (Verified Allergy, Unknown, 03/20/17) pregabalin (Verified Allergy, Unknown, 03/20/17) Scheduled ([Vit D3 ]) 4,000 IU PO BID ([B12]) 500 MCG PO DAILY Amitriptyline (Amitriptyline) 25 Mg Tab 75 MG PO HS Amlodipine (Amlodipine) 5 Mg Tablet 5 MG PO DAILY Bupropion ER (Wellbutrin XL) 150 Mg Tab.er.24h 300 MG PO DAILY Glimepiride (Glimepiride) 4 Mg Tablet 4 MG PO BIDWM Levothyroxine (Levothyroxine) 112 Mcg Tablet 112 MCG PO DAILY Magnesium Citrate (Magnesium Citrate) 296 Ml Solution 148 ML PO DAILY Magnesium Oxide (Mag-Oxide) 400 Mg Tablet 400 MG PO DAILY Multivitamin (Once Daily) 1 Each Tablet 1 EACH PO DAILY [place]-3/Dha/Epa/Fish Oil (Fish Oil 1,400 mg Softgel) 1 Each Capsule.dr 1 EACH PO DAILY Scheduled PRN Alprazolam (Alprazolam) 1 Mg Tablet 1 MG PO TID PRN PRN For Anxiety or Agitation Hydrocodone-Acetaminophen 5-325 mg (Hydrocodone-Acetaminophen 5-325 mg) 1 Each Tablet 1 TABLET PO Q4H PRN PRN For Pain General Time Seen by MD: 15:59 Chief Complaint Fall Hx Obtained From: Patient Arrived By: Walk-in Onset Occurred: Just prior to arrival Symptom Duration: Since onset Location: Back Quality: Painful Severity: Current: Moderate Severity: Maximum: Severe Similar Sx Previous: No Past Medical History Past Medical History 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 Dyslipidemia Hypothyroidism Gastroesophageal reflux disease. Chronic liver transaminase elevations. Fibromyalgia and chronic pain. Obstructive sleep apnea and daytime somnolence. Mild aortic insufficiency. She reports history of cardiac complications of weight reduction pills. Chronic depression and anxiety. Reports: Asthma, Diabetes mellitus Past Surgical History Bilateral Mastectomy Carpal tunnel surgery on both hands. Trigger finger surgery on the right. Lipoma removal from the tailbone area. Right knee surgery to remove loose bone fragment. Family History Heart disease in both parents. No heart issues in siblings. Smoking History Former Smoker Social History Other Social History: Good social support, , Local resident Ambulatory Status Independent Review of Systems Constitutional: Denies: Chills, Fever Respiratory: Reports: Pleuritic pain, Shortness of breath Musculoskeletal: Reports: Thoracic pain, Denies: Extremity pain, Neck pain Neurologic: Denies: Change LOC, Headache, Syncope Complete sys rev & neg: except as marked. Cardiovascular: Denies: Chest pain GI: Denies: Abdominal pain, Nausea, Vomiting Physical Exam Initial Vital Signs Vital Signs (First) Date Time Temp Pulse Resp B/P Pulse Ox O2 Delivery O2 Flow Rate FiO2 07/03/17 15:52 36.9 74 24 130/73 99 Room Air Initial VS: Reviewed, Vital signs normal Head / Eyes: Atraumatic, Normocephalic, PERRL ENT: Mucous membranes moist, Conjunctiva normal Cardiovascular: Regular rate & rhythm, Heart sounds normal, Intact distal pulses Abdomen / GI: Soft, Non-tender, No guarding, No rebound, No distention Extremities: Vascular intact, Neuro intact, No swelling, No tenderness Skin: Warm, Dry, No cyanosis Neurologic: Alert, Oriented, Nonfocal Psychiatric: Mood/affect normal, Behavior normal, Normal thought content General/Constitutional: Awake, Alert, No acute distress, Cooperative, Not toxic appearing Appearance / Presentation: Positive: Uncomfortable Neck: Atraumatic, Supple, No meningismus, Full range of motion, No swelling, Non-tender, No midline vertebral tend Respiratory / Chest: Breath sounds NL, Breath sounds = bilat, No respiratory distress, No rales, No rhonchi, No wheezing, No retractions, No stridor, No chest wall deformity, No crepitus Back: No midline vertebral tend Abrasion over left upper back Diffuse tendeness of the left mid-back Interpretation & Diagnostics Lab Results Interpretation Result Diagram: 07/03/17 1618 07/03/17 1618 Test 07/03/17 16:18 White Blood Count 5.2th/mm3 (3.8-10.1) Red Blood Count 4.33mil/mm3 (3.90-5.20) Hemoglobin 12.7g/dL (12.0-15.6) Hematocrit 37.8% (35.0-46.0) Mean Corpuscular Volume 87.3fL (81-100) Mean Corpuscular Hemoglobin 29.3pg (27.0-35.0) Mean Corpuscular Hemoglobin Concent 33.6% (32.0-37.0) Red Cell Distribution Width 14.0% (12.3-15.4) Platelet Count 280bil/L (150-400) Neutrophils (%) (Auto) 64.6% (40-74) Lymphocytes (%) (Auto) 24.1% (14-46) Monocytes (%) (Auto) 9.2% (4-12) Eosinophils (%) (Auto) 1.3% (0-5) Basophils (%) (Auto) 0.8% (0-3) Sodium Level 136mEq/L (134-144) Potassium Level 4.6mEq/L (3.5-5.2) Chloride Level 100mEq/L (97-108) Carbon Dioxide Level 20mmol/L (18-29) Blood Urea Nitrogen 21mg/dL (8-27) Creatinine 1.23mg/dL (0.57-1.00) Estimat Glomerular Filtration Rate 63mL/min (>59) Glucose Level 130mg/dL (60-99) Calcium Level 9.9mg/dL (8.5-10.1) Total Bilirubin 0.2mg/dL (0.0-1.2) Aspartate Amino Transf (AST/SGOT) 23U/L (0-50) Alanine Aminotransferase (ALT/SGPT) 25U/L (0-32) Alkaline Phosphatase 65U/L (25-165) Total Protein 7.8g/dL (6.4-8.4) Albumin 4.6g/dL (3.4-5.0) X-Ray Chest Interpretation Chest Xray Interpretation: IMPRESSION: No acute cardiopulmonary disease. Dictated by: Zion Grant M.D. on 07/03/2017 at 16:45 Approved by: Zion Grant M.D. on 07/03/2017 at 16:46 View: Portable, 1 view Interpretation / Wet Read by: Interpret - Radiologist Re-Eval/Medical Decision Med Decision/Clinical Course 66-year-old female presenting after a fall off of a chair onto her left upper back. She has abrasions left upper back. She has tenderness left upper back. She denied any chest pain difficulty breathing. No loss of consciousness or head trauma. She is not on blood thinners. She has no abdominal tenderness. X-ray of chest was normal. Her vital signs are stable. Her labs are unremarkable. She is up-to-date on her tetanus. Likely contusion. Return precautions given. Chest pain difficulty breathing any other new or worsening symptoms. Source of Hx: Old records Re-Evaluation/Progress : Time of Eval: 17:19 Patient Status: Condition improved, Moderate relief, Pain improved Evaluation: Mental status normal, Neurologic nonfocal Re-Evaluation/Progress Note: Pt rechecked. Informed pt of plan for discharge. Pt understands and agrees with plan for discharge. F/U instructions and RTER warnings given. All questions addressed. Counseled Regarding: Diagnosis, Lab results, Need for follow-up, When/why to return to ED Discharge & Departure Impression: Primary Impression: Fall Encounter type: initial encounter Qualified Code: W19.XXXA - Unspecified fall, initial encounter Additional Impression: Back contusion Encounter type: initial encounter Laterality: left Qualified Code: S20.222A - Contusion of left back wall of thorax, initial encounter Disposition: Home Discharge Condition All VS Reviewed: Yes Condition: Improved Patient Instructions: Contusion in Adults (ED) Additional Instructions: The x-ray showed no signs of rib fracture. Small or occult rib fractures are commonly unable to be seen on x-ray although if they are present they are only symptomatically managed. Take long deep breaths multiple times each day to prevent pneumonia. Your exam is reassuring. I suspect you have a contusion. Follow-up with your primary care doctor within 1 week for a recheck. Return to the emergency department for any severe or worsening pain, abdominal pain, trouble breathing, severe cough, fever, numbness/tingling/weakness of your arms or legs, or for other concerning symptoms. Referrals: Lex Rosado MD (PCP) 1 Week Scribe Attestation Portions of this note were transcribed by Salty Sifuentes. I, Dr. Lopez personally performed the history, physical exam and medical decision-making; I reviewed and confirmed the accuracy of the information in the transcribed note. copies to: Lex Rosado MD, Ben M MD Jul 03, 2017 16:01 SALTY SIFUENTES Jul 03, 2017 16:08
[2017-07-03] MEDS ORDERED: Ondansetron 2 mg/mL 2 mL Inj IVPUSH PRN (16:10)
[2017-07-03] MEDS ORDERED: HYDROmorphone 0.5 mg/0.5 mL iSecure Syringe IVPUSH PRN (16:10)
[2017-07-03 16:22] LABS: BASOPHILS % (AUTO) 0.8 % (0-3); EOSINOPHILS % (AUTO) 1.3 % (0-5); MONOCYTES % (AUTO) 9.2 % (4-12); Mean Corpuscular Hemoglobin 29.3 pg (27.0-35.0); Mean Corpuscular Volume 87.3 fL (81-100); NEUTROPHILS % (AUTO) 64.6 % (40-74); Platelet Count 280 bil/L (150-400)
--- NOTE | 2017-07-03 16:47 | DRSVH ---
PROCEDURE: X-RAY CHEST ONE VIEW, PORTABLE ([id number]) INDICATIONS: 66 year-old female with left chest pain after trauma. TECHNIQUE: One view of the chest was acquired. COMPARISON: [facility], CR, XR CHEST 2VW, 03/19/2017, 16:49. [facility], CR, XR CHEST 1VW (PORTABLE), 07/22/2015, 11:10. [facility], CR, CHEST 1VW (PORTABLE), 015, 16:20. FINDINGS: Surgical changes and devices: Bilateral anterior chest wall surgical clips are present. Lungs and pleura: No pleural effusions or pneumothorax. Lungs are clear. Mediastinum: Mediastinal contours appear normal. Heart size is normal. Bones and chest wall: No suspicious bony lesions. Overlying soft tissues appear unremarkable. IMPRESSION: No acute cardiopulmonary disease. Dictated by: Zion Grant M.D. on 07/03/2017 at 16:45 Approved by: Zion Grant M.D. on 07/03/2017 at 16:46
[2017-07-03] MEDS ORDERED: HYDR-4003 PO (17:19)
[2017-07-03 17:39] VITALS: BP 126/64; PULSE 68; RESP 16; O2SAT 96
== END 2017-07-03 17:39 | disposition home or self-care (01) ==
LOC: EDBD 15:46 → SED 15:52
DX: S20.222A Contusion of left back wall of thorax, initial encounter (principal); W07.XXXA Fall from chair, initial encounter; Y93.89 Activity, other specified; Y99.8 Other external cause status; Y92.010 Kitchen of single-family (private) house as the place of occurrence of the external cause; E11.9 Type 2 diabetes mellitus without complications; K21.9 Gastro-esophageal reflux disease without esophagitis; E78.5 Hyperlipidemia, unspecified; J45.909 Unspecified asthma, uncomplicated; M79.7 Fibromyalgia; Z87.891 Personal history of nicotine dependence; Z90.13 Acquired absence of bilateral breasts and nipples; Z85.3 Personal history of malignant neoplasm of breast; Z88.8 Allergy status to other drugs, medicaments and biological substances
CPT/HCPCS: 36415; 71010; 80053; 85025; 96374; 99284; J1885